=== PATIENT | female | born 2005 | race Two or more races ===

== ENCOUNTER 2025-02-02 22:13 | Inpatient (IN) | payer OTHER, SELFPAY ==
[2025-02-02] VITALS (7 sets, daily range): BP systolic 107–118; BP diastolic 65–80; PULSE 65–99; RESP 10–20; TEMP 3.3–37.9; O2SAT 97–100; BMI 19.8
[2025-02-02] MEDS: ETOMIDATE INJ 2 MG/ML VIAL 10 ML 10 MG IVP (22:19)
[2025-02-02] MEDS: ROCURONIUM INJ 10 MG/ML VIAL 10 ML 50 MG IVP (22:19)
--- NOTE | 2025-02-02 22:20 | XR_ITS ---
EXAMINATION: AP chest single view TECHNIQUE: AP portable supine chest single view INDICATION: Hypoxic respiratory failure post intubation FINDINGS: Normal heart size No pulmonary edema or pneumonia Endotracheal tube tip 3 cm above corie. Orogastric tube in the stomach IMPRESSION: Endotracheal tube 3 cm above corie
--- NOTE | 2025-02-02 22:25 | XR_ITS ---
Examination: CT brain head without contrast. 2-D sagittal coronal reconstructions Date and time of exam: February 02, 2025, 11:19 p.m. INDICATIONS: Altered mental status,, today with elevated blood alcohol level CTDI: vol (mGy): 46.3 DLP: (mGycm): 815 Technique: Multiple CT axial sections of the brain have been obtained, 5 mm slice thickness. Contrast has not been administered. 2-D sagittal, coronal reconstructions have been obtained Low dose protocols were performed. One or more of the following dose reduction techniques were used; automated exposure control, adjustment of the mA and/or KV according to patient size, use of iterative reconstruction technique. Findings: No significant ventricular enlargement. Intra-axial or extra-axial hemorrhage density is not seen. No mass effect or midline shift Basal cisterns are not remarkable. Fourth ventricle is midline. Cranial vault intact. Chronic pansinusitis Impression: Negative for acute hemorrhage, mass effect or midline shift
--- NOTE | 2025-02-02 22:26 | PD.EDAMS ---
Altered Mental Status RME/HPI General Chief Complaint: Altered Mental Status Stated Complaint: ALTERED Time Seen by Provider: 02/02/25 22:24 Arrival date/time: 02/02/25 22:13 RME / HPI RME / HPI narrative: DR. CARSON MAIN ED EVALUATION: Patient found in bedroom obtunded with alcohol bottle and presumed to have drank alcohol earlier in the day, was found unresponsive by paramedics with large amount of emesis. Patient transported to ER emergently and IV established in the field. Patient placed on high-flow non-rebreather with GCS of 3. PMH: Unable to assess PSH: Unable to assess Allergies: Unable to assess Social: Unable to assess Related Data Previous Rx's ?Medication ?Instructions ?Recorded amoxicillin 875 mg-potassium 1 tab PO BID aspiration pneumonia 02/04/25 clavulanate 125 mg tablet 3 days #6 tabs Allergies Allergy/AdvReac Type Severity Reaction Status Date / Time No Known Allergies Allergy Verified 02/03/25 03:53 Review of Systems Review of Systems Systems Reviewed: All systems reviewed, normal except as documented Past Medical History Social History SMOKING STATUS: Unknown if ever smoked ALCOHOL: Current ALCOHOL LAST INTAKE: Just Prior to Arrival ED Exam Narrative Physical exam: GEN. APPEARANCE: Patient under no distress, lying down comfortably, does not look ill/toxic. Patient has good eye contact. Patient is cooperative. Patient obtunded, unresponsive with digested particulate matter within her mouth. VITALS: All vitals were reviewed and the pulse ox is 99%, which is normal according to my interpretation HEENT: Normocephalic, atraumatic and nontender. Pupils are 6 mm, with slight diconjugate gaze noted. Oral mucosa is moist. NECK: Supple, nontender, no meningismus, no JVD. There is no thyromegaly and no lymphadenopathy. CHEST: Nontender on palpation no deformity and no crepitus. CARDIOVASCULAR: Mildly tachycardic, no murmur or gallop rub or extra beats. LUNGS: Clear to auscultation bilaterally with symmetrical chest rise. No laboring tachypnea or wheezing. No intercostal subcostal retraction. No rales and no rhonchi. ABDOMEN: Soft, flat, nontender to palpation, no guarding or rebound tenderness. There are no abnormal masses palpated. No pulsatile masses or bruits. Active and normal bowel sounds. EXTREMITIES: Normal inspection and palpation. No edema. No cyanosis. Patient is able to move all 4 extremities well SKIN: Warm and dry, no rashes noted. MUSCULOSKELETAL: No lumbar or midline bony tenderness. There is no CVA tenderness. No paraspinal muscle spasm or tenderness. NEURO: Unable to assess cranial nerves, extremities are flaccid, no response to deep sternal rub. GCS of 3. PSYCHIATRIC: Patient is in normal mood and affect, cooperative. LYMPHATICS: No major lymphadenopathy noted. Course Quality Measures none Orders Category Date Time Status 24 HR Medical Restraints Q2HR Care 02/02/25 23:08 Completed Bedside COVID-19 Antigen Test NOW Care 02/02/25 22:35 Completed COVID-19 Screening Questionnaire NOW Care 02/02/25 22:58 Completed Indwelling [Urinary Catheter] QS Care 02/02/25 22:20 Completed Intubation NOW Care 02/02/25 22:40 Completed NG / OG Tube to LIS NOW Care 02/02/25 22:[address] head/brain wo con Stat Exams 02/02/25 22:25 Completed XR chest 1V post procedure Stat Exams 02/02/25 22:20 Completed ABG [Arterial Blood Gas] Stat Lab 02/02/25 22:56 Completed Acetaminophen Stat Lab 02/02/25 22:20 Completed CBC Stat Lab 02/02/25 22:20 Completed CMP [Comprehensive Metabolic Panel] Stat Lab 02/02/25 22:20 Completed Drug Screen,Urine Stat Lab 02/02/25 22:30 Completed HCG Qualitative,Urine Stat Lab 02/02/25 22:30 Completed SANDRA [Alcohol, Blood Medical] Stat Lab 02/02/25 22:20 Completed Magnesium Stat Lab 02/02/25 22:20 Completed Phosphorous Stat Lab 02/02/25 22:20 Completed Salicylate Stat Lab 02/02/25 22:20 Completed Sputum Culture and Gram Stain Stat Lab 02/02/25 22:55 Completed UA, C/S IF [Urinalysis, C/S if Indicated] Stat Lab 02/02/25 22:30 Completed Etomidate Inj [Amidate Inj] Med 02/02/25 22:22 Discontinued 10 mg IVP X1 ONE Etomidate Inj [Amidate Inj] Med 02/02/25 22:15 Discontinued 20 mg .ROUTE .STK-MED ONE Propofol 1,000 mg Ivpb [Diprivan Ivpb] Med 02/02/25 22:28 Discontinued 1,000 mg in 100 ml IV .STK-MED Propofol 1,000 mg Ivpb [Diprivan Ivpb] Med 02/02/25 22:35 Discontinued 1,000 mg in 100 ml IV 5 mcg/kg/min Propofol Inj [Diprivan Inj] Med 02/02/25 22:36 Discontinued 50 mg IV X1 ONE Rocuronium Inj [Zemuron Inj] Med 02/02/25 22:16 Discontinued 100 mg .ROUTE .STK-MED ONE Rocuronium Inj [Zemuron Inj] Med 02/02/25 22:23 Discontinued 50 mg IVP X1 ONE Sodium Chloride 0.9% 1000 ml [Ns] 1,000 ml Med 02/02/25 23:58 Discontinued IV 200 mls/hr Sodium Chloride 0.9% 1000 ml [Ns] 1,000 ml Med 02/02/25 22:26 Discontinued IV 999 mls/hr Sodium Chloride Rt Jana 10% [NS Rt Jana 10%] Med 02/02/25 22:37 Discontinued 5 ml INH X1 PRN Vital Signs Vital signs: Vital Signs Temperature 94.1 F L 02/02/25 22:20 Pulse Rate 99 02/02/25 22:20 Respiratory Rate 14 02/02/25 22:20 Blood Pressure 114/78 02/02/25 22:20 Pulse Oximetry (%) 99 02/02/25 22:20 Oxygen Delivery Method Ambu-Bag 02/02/25 22:20 PROCEDURES: Intubation Time out performed: Yes sedative: Etomidate Mg Given: 10 paralytic: Rocuronium Mg Given: 50 Laryngoscope: fiber optic video scope Assist Device Used: fiber optic device ET Tube Size: 6 (.02) ET Tube Uncuffed: Yes Tube Secured Depth (cm): 22 Tube Secured Location: teeth Tube Placement Confirmation: visualized tube passing through cords, equal breath sounds bilaterally and confirmation by capnometry Patient Tolerated Procedure: well and no complications Intubation Complications: none Altered Mental Status MDM Narrative MDM Narrative:: Scribe Attestation: Monica Nicole am scribing for and in the presence of Dr. Spencer. Provider Notation: Although this document has been carefully reviewed, there may still be some phonetic and other typographical errors. These errors are purely grammatical due to imperfections in the software program and should not be construed in any way to compromise the substance of the patient's medical care during this visit. Patient found in bedroom obtunded with alcohol bottle and presumed to have drank alcohol earlier in the day, was found unresponsive by paramedics with large amount of emesis. Patient transported to ER emergently and IV established in the field. Please see PE findings. Laboratory markers, including CBC and serum chemistries, were remarkable for WBC of 19.5, no left shift or associated bandemia. Serum chemistries demonstarte slightly low Potassium of 3.2 and Carbon Diozide of 19.3. Glucose mildly elevated at 173. UA unremarkable. Ethanol level 0.545. Patient immediately triaged to monitored bed, patient with GCS of 3, and intubated shortly thereafter (please see procedure note). Patient hydrated with saline in addition to receiving IV ABX after cultures obtained. Patient was notably hypothermic and external warming measures applied. Patient maintained on sedation protocol. Hospitalist consulted and agrees to admit. Final diagnoses include acute ethanol intoxication and R/O aspiration. Patient data External records reviewed:: [facility] previous records (No prior ED records available for review) and EMS form Clinical information provided by:: EMS Social determinants that could affect healthcare access:: alcohol use Patient has the following chronic illnesses:: None reported How is presenting disease/condition affected by chronic disease/condition?: no chronic disease Evaluation data The following diagnostics were reviewed and interpreted by me:: lab results and radiology exam(s) Lab and/or radiology exams considered but not ordered:: None Interpretation Summary: RADIOLOGY Head/Brain CT: Findings: No significant ventricular enlargement. Intra-axial or extra-axial hemorrhage density is not seen. No mass effect or midline shift Basal cisterns are not remarkable. Fourth ventricle is midline. Cranial vault intact. Chronic pansinusitis Impression: Negative for acute hemorrhage, mass effect or midline shift Chest X-Ray: FINDINGS: Normal heart size No pulmonary edema or pneumonia Endotracheal tube tip 3 cm above corie. Orogastric tube in the stomach IMPRESSION: Endotracheal tube 3 cm above corie Medications / Prescriptions Medications or Prescriptions considered but not ordered:: None Medication administrations:: Medication Administration History Discontinued Medications Acetaminophen (Acetaminophen 325 Mg Tablet) 650 mg PO Q6H PRN PRN Reason: Fever >101.3 or pain Stop: 03/05/25 00:17 Acetaminophen (Acetaminophen 325 Mg Tablet) 650 mg PO Q6H PRN PRN Reason: PAIN SCALE 1-3 (mild Stop: 03/05/25 00:17 Acetaminophen (Acetaminophen 325 Mg Tablet) 650 mg PO Q6H PRN PRN Reason: Pain Scale 1-3 or fever 101.3 Stop: 03/05/25 00:17 Diazepam (Diazepam Inj 5 Mg/Ml Vial 2 Ml) 5 mg IVP X1 PRN PRN Reason: Breakthrough Agitation Etomidate (Etomidate Inj 2 Mg/Ml Vial 10 Ml) Confirm Administered Dose 20 mg .ROUTE .STK-MED ONE Stop: 02/02/25 22:16 Last Admin: 02/02/25 22:26 Dose: Not Given Documented By: MARK Non-Admin Reason: Override Medication Etomidate (Etomidate Inj 2 Mg/Ml Vial 10 Ml) 10 mg IVP X1 ONE Stop: 02/02/25 22:23 Last Admin: 02/02/25 22:19 Dose: 10 mg Documented By: MARK Folic Acid (Folic Acid Inj 1 Mg/0.2 Ml) 1 mg IVP QDAY SHANE Stop: 02/06/25 00:24 Last Admin: 02/04/25 09:15 Dose: 1 mg Documented By: [email or web address] Admin: 02/03/25 09:18 Dose: 1 mg Documented By: Admin: 02/03/25 00:45 Dose: 1 mg Documented By: VIANEY Heparin Sodium (Porcine) (Heparin Sod Inj 5000 Unit/Ml Vial) 5,000 unit SC Q8HR SHANE Stop: 02/17/25 00:29 Last Admin: 02/04/25 05:14 Dose: 5,000 unit Documented By: LORELEI Co-signed By: DALTON Admin: 02/03/25 21:07 Dose: 5,000 unit Documented By: LORELEI Co-signed By: [email or web address] Admin: 02/03/25 15:03 Dose: 5,000 unit Documented By: LOUIS Co-signed By: LEWIS Admin: 02/03/25 05:24 Dose: 5,000 unit Documented By: ROBERT Co-signed By: RENETTA Admin: 02/03/25 00:51 Dose: 5,000 unit Documented By: VIANEY Co-signed By: MARY Sodium Chloride (Ns) 1,000 mls @ 999 mls/hr IV .Q1H1M ONE Stop: 02/02/25 23:26 Last Infusion: 02/02/25 23:42 Dose: Infused Documented By: Admin: 02/02/25 22:34 Dose: 999 mls/hr Documented By: AMRK Propofol (Diprivan Ivpb) Confirm Administered Dose 1,000 mg in 100 mls @ ud IV .STK-MED ONE Stop: 02/02/25 22:29 Last Admin: 02/02/25 22:36 Dose: Not Given Documented By: VIANEY Non-Admin Reason: Duplicate Medication on eMAR Propofol (Diprivan Ivpb) 1,000 mg in 100 mls @ 1.479 mls/hr IV .Q24H PRN; Protocol PRN Reason: PER PROTOCOL Stop: 03/04/25 22:34 Last Titration: 02/03/25 06:15 Dose: 5 mcg/kg/min, 1.479 mls/hr Documented By: Titration: 02/03/25 06:00 Dose: 10 mcg/kg/min, 2.958 mls/hr Documented By: Titration: 02/03/25 05:30 Dose: 15 mcg/kg/min, 4.437 mls/hr Documented By: Titration: 02/03/25 05:15 Dose: 20 mcg/kg/min, 5.916 mls/hr Documented By: Titration: 02/03/25 05:00 Dose: 25 mcg/kg/min, 7.395 mls/hr Documented By: Titration: 02/03/25 04:30 Dose: 30 mcg/kg/min, 8.874 mls/hr Documented By: Titration: 02/03/25 04:00 Dose: 35 mcg/kg/min, 10.353 mls/hr Documented By: Titration: 02/03/25 03:00 Dose: 35 mcg/kg/min, 10.353 mls/hr Documented By: Titration: 02/03/25 02:30 Dose: 30 mcg/kg/min, 8.874 mls/hr Documented By: Titration: 02/03/25 02:20 Dose: 25 mcg/kg/min, 7.395 mls/hr Documented By: Titration: 02/03/25 02:10 Dose: 20 mcg/kg/min, 5.916 mls/hr Documented By: Titration: 02/03/25 02:00 Dose: 15 mcg/kg/min, 4.437 mls/hr Documented By: Titration: 02/03/25 01:45 Dose: 10 mcg/kg/min, 2.958 mls/hr Documented By: Admin: 02/02/25 22:28 Dose: 5 mcg/kg/min, 1.479 mls/hr Documented By: VIANEY Co-signed By: MARY Sodium Chloride (Ns) 1,000 mls @ 200 mls/hr IV .Q5H SHANE Stop: 03/04/25 23:57 Last Admin: 02/03/25 00:04 Dose: 200 mls/hr Documented By: VIANEY Magnesium Sulfate (Magnesium Sulfate Ivpb) 2 gm in 50 mls @ 25 mls/hr IV X1 ONE Stop: 02/03/25 02:22 Last Infusion: 02/03/25 03:48 Dose: Infused Documented By: Admin: 02/03/25 00:42 Dose: 25 mls/hr Documented By: VIANEY Lactated Ringer's (Lactated Ringers) 1,000 mls @ 999 mls/hr IV .Q1H1M ONE Stop: 02/03/25 01:27 Last Infusion: 02/03/25 03:48 Dose: Infused Documented By: Admin: 02/03/25 00:38 Dose: 999 mls/hr Documented By: VIANEY Potassium Chloride (Kcl Ivpb) 10 meq in 100 mls @ 100 mls/hr IV Q1H SHANE Stop: 02/03/25 04:27 Last Infusion: 02/03/25 06:37 Dose: Infused Documented By: Admin: 02/03/25 04:18 Dose: 100 mls/hr Documented By: Infusion: 02/03/25 04:03 Dose: Infused Documented By: Admin: 02/03/25 03:03 Dose: 100 mls/hr Documented By: Infusion: 02/03/25 03:03 Dose: Infused Documented By: Admin: 02/03/25 02:07 Dose: 100 mls/hr Documented By: Infusion: 02/03/25 01:42 Dose: Infused Documented By: Admin: 02/03/25 00:42 Dose: 100 mls/hr Documented By: VIANEY Calcium Gluconate/Sodium Chloride (Calcium Gluc/Ns 1000mg Ivpb) 1,000 mg in 50 mls @ 50 mls/hr IV X1 ONE Stop: 02/03/25 01:29 Last Infusion: 02/03/25 03:48 Dose: Infused Documented By: Admin: 02/03/25 02:08 Dose: 50 mls/hr Documented By: ROBERT Lactated Ringer's (Lactated Ringers) 1,000 mls @ 200 mls/hr IV .Q5H SHANE Stop: 03/05/25 00:30 Last Admin: 02/03/25 00:39 Dose: 200 mls/hr Documented By: VIANEY Lactated Ringer's (Lactated Ringers) 1,000 mls @ 999 mls/hr IV .Q1H1M ONE Stop: 02/03/25 01:34 Last Infusion: 02/03/25 03:48 Dose: Infused Documented By: Admin: 02/03/25 00:54 Dose: 999 mls/hr Documented By: VIANEY Propofol (Diprivan Ivpb) 1,000 mg in 100 mls @ 1.479 mls/hr IV .Q24H PRN; Protocol PRN Reason: PER PROTOCOL Stop: 03/04/25 22:34 Potassium Chloride (Kcl Ivpb) 10 meq in 100 mls @ 100 mls/hr IV Q1H SHANE Stop: 02/03/25 06:29 Last Admin: 02/03/25 06:15 Dose: Not Given Documented By: ROBERT Non-Admin Reason: Discontinued Infusion: 02/03/25 06:15 Dose: Infused Documented By: Admin: 02/03/25 05:00 Dose: 100 mls/hr Documented By: ROBERT Lactated Ringer's (Lactated Ringers) 1,000 mls @ 999 mls/hr IV .Q1H1M ONE Stop: 02/03/25 02:35 Last Infusion: 02/03/25 03:48 Dose: Infused Documented By: Admin: 02/03/25 02:08 Dose: 999 mls/hr Documented By: ROBERT Ceftriaxone Sodium/Dextrose (Rocephin/D5w 1gm Iv Premix) 1 gm in 50 mls @ 100 mls/hr IV QDAY [facility] Stop: 02/10/25 02:15 Last Infusion: 02/03/25 03:48 Dose: Infused Documented By: Admin: 02/03/25 02:48 Dose: 100 mls/hr Documented By: ROBERT Dexmedetomidine/Sodium Chloride (Precedex Ivpb) 400 mcg in 100 mls @ 2.465 mls/hr IV .Q24H PRN; Protocol PRN Reason: Per PROTOCOL Stop: 03/05/25 02:15 Ceftriaxone Sodium/Dextrose (Rocephin/D5w 1gm Iv Premix) 1 gm in 50 mls @ 100 mls/hr IV QDAY ONE Stop: 02/03/25 03:24 Last Admin: 02/03/25 03:03 Dose: Not Given Documented By: ROBERT Non-Admin Reason: Duplicate Medication on eMAR Ampicillin Sodium/Sulbactam (Sodium 1.5 gm/ Sodium Chloride) 50 mls @ 100 mls/hr IV Q6HR [facility] Stop: 02/10/25 05:59 Last Admin: 02/04/25 11:24 Dose: 100 mls/hr Documented By: Infusion: 02/04/25 05:44 Dose: Infused Documented By: Admin: 02/04/25 05:14 Dose: 100 mls/hr Documented By: Infusion: 02/03/25 23:52 Dose: Infused Documented By: Admin: 02/03/25 23:22 Dose: 100 mls/hr Documented By: Infusion: 02/03/25 18:03 Dose: Infused Documented By: Admin: 02/03/25 17:33 Dose: 100 mls/hr Documented By: Infusion: 02/03/25 13:25 Dose: Infused Documented By: Admin: 02/03/25 12:55 Dose: 100 mls/hr Documented By: Infusion: 02/03/25 05:53 Dose: Infused Documented By: Admin: 02/03/25 05:23 Dose: 100 mls/hr Documented By: ROBERT Dexmedetomidine/Sodium Chloride (Precedex Ivpb) 400 mcg in 100 mls @ 2.465 mls/hr IV .Q24H PRN; Protocol PRN Reason: Per PROTOCOL Stop: 03/05/25 02:15 Last Titration: 02/03/25 10:18 Dose: 0 mcg/kg/hr, 0 mls/hr Documented By: Titration: 02/03/25 10:00 Dose: 0.8 mcg/kg/hr, 9.86 mls/hr Documented By: Titration: 02/03/25 09:00 Dose: 0.8 mcg/kg/hr, 9.86 mls/hr Documented By: Titration: 02/03/25 08:00 Dose: 0.8 mcg/kg/hr, 9.86 mls/hr Documented By: Titration: 02/03/25 07:00 Dose: 0.8 mcg/kg/hr, 9.86 mls/hr Documented By: Titration: 02/03/25 06:00 Dose: 0.8 mcg/kg/hr, 9.86 mls/hr Documented By: Titration: 02/03/25 05:00 Dose: 0.8 mcg/kg/hr, 9.86 mls/hr Documented By: Titration: 02/03/25 04:00 Dose: 0.8 mcg/kg/hr, 9.86 mls/hr Documented By: Titration: 02/03/25 03:12 Dose: 0.8 mcg/kg/hr, 9.86 mls/hr Documented By: Admin: 02/03/25 03:00 Dose: 0.2 mcg/kg/hr, 2.465 mls/hr Documented By: ROBERT Propofol (Diprivan Ivpb) 1,000 mg in 100 mls @ 1.479 mls/hr IV .Q24H PRN; Protocol PRN Reason: PER PROTOCOL Stop: 03/05/25 02:56 Lactated Ringer's (Lactated Ringers) 1,000 mls @ 999 mls/hr IV .Q1H1M ONE Stop: 02/03/25 06:47 Last Admin: 02/03/25 06:16 Dose: 999 mls/hr Documented By: ROBERT Dexmedetomidine/Sodium Chloride (Precedex Ivpb) 400 mcg in 100 mls @ 2.465 mls/hr IV .Q24H PRN; Protocol PRN Reason: Per PROTOCOL Stop: 03/05/25 02:15 Propofol (Diprivan Ivpb) 1,000 mg in 100 mls @ 1.479 mls/hr IV .Q24H PRN; Protocol PRN Reason: PER PROTOCOL Stop: 03/05/25 02:56 Lactated Ringer's (Lactated Ringers) 1,000 mls @ 75 mls/hr IV .[id number] ONE Stop: 02/04/25 04:03 Last Admin: 02/03/25 15:03 Dose: 75 mls/hr Documented By: LOUIS Influenza Virus Vaccine Quadrival (Influenza Virus 0.5 Ml Syringe ) 0.5 ml IMi .ONCE ONE Stop: 02/03/25 03:45 Lorazepam (Lorazepam 0.5 Mg Tablet) 0.5 mg PO Q4HR PRN PRN Reason: CIWA Score 2-6 Stop: 02/08/25 16:13 Last Admin: 02/03/25 18:25 Dose: 0.5 mg Documented By: BRUCE Lorazepam (Lorazepam 0.5 Mg Tablet) 1 mg PO Q4HR PRN PRN Reason: CIWA SCORE 7-11 Stop: 02/08/25 16:13 Lorazepam (Lorazepam 0.5 Mg Tablet) 2 mg PO Q4HR PRN PRN Reason: CIWA SCORE 12-15 Stop: 02/08/25 16:13 Midazolam HCl (Midazolam Inj 1 Mg/Ml Vial 2 Ml) 2 mg IM X1 ONE Stop: 02/03/25 03:09 Last Admin: 02/03/25 04:30 Dose: Not Given Documented By: ROBERT Non-Admin Reason: Discontinued Midazolam HCl (Midazolam Inj 1 Mg/Ml Vial 2 Ml) 2 mg IVP X1 ONE Stop: 02/03/25 03:11 Last Admin: 02/03/25 05:19 Dose: Not Given Documented By: ROBERT Non-Admin Reason: Change of Condition Ondansetron HCl (Ondansetron Inj 2 Mg/Ml Inj 2 Ml) 4 mg IVP Q6H PRN; Protocol PRN Reason: NAUSEA OR VOMITING Stop: 03/05/25 00:17 Pantoprazole Sodium (Pantoprazole Inj 40 Mg Vial) 40 mg IVP QDAY [facility] Stop: 03/05/25 08:59 Last Admin: 02/03/25 09:18 Dose: 40 mg Documented By: LOUIS Propofol (Propofol Inj 10 Mg/Ml Vial 20 Ml) 50 mg IV X1 ONE Stop: 02/02/25 22:37 Last Admin: 02/02/25 22:41 Dose: Not Given Documented By: DT Non-Admin Reason: Cancelled by Provider Rocuronium Crooks (Rocuronium Inj 10 Mg/Ml Vial 10 Ml) Confirm Administered Dose 100 mg .ROUTE .STK-MED ONE Stop: 02/02/25 22:17 Last Admin: 02/02/25 22:26 Dose: Not Given Documented By: MARK Non-Admin Reason: Override Medication Rocuronium Crooks (Rocuronium Inj 10 Mg/Ml Vial 10 Ml) 50 mg IVP X1 ONE Stop: 02/02/25 22:24 Last Admin: 02/02/25 22:19 Dose: 50 mg Documented By: MARK Co-signed By: MARY Sodium Chloride (Sodium Chloride Rt 10% 15 Ml Nebu) 5 ml INH X1 PRN PRN Reason: If induction required Stop: 03/04/25 22:36 Thiamine HCl (Thiamine Inj 100 Mg/Ml Vial 2 Ml) 100 mg IVP QDAY [facility] Stop: 02/06/25 00:24 Last Admin: 02/04/25 08:12 Dose: 100 mg Documented By: [email or web address] Admin: 02/03/25 09:17 Dose: 100 mg Documented By: Admin: 02/03/25 00:52 Dose: 100 mg Documented By: VIANEY Thiamine HCl (Thiamine Inj 100 Mg/Ml Vial 2 Ml) 100 mg IVP X1 ONE Stop: 02/03/25 00:24 Last Admin: 02/03/25 00:45 Dose: 100 mg Documented By: DT See above if any Consultations Consultation(s) initiated? (list below): Yes Consultation #1 (Physician, Specialty, Details): Discussed with Dr. Coello for admission. Reviewed the patient?s HPI, PMHx, lab and/or radiology results. Discussed treatment plan. Will consult an admission to the hospitalist. Time: 00:15 Diagnosis Differential diagnosis altered mental status: alcoholic intoxication, altered mental status, delirium, hypoglycemia, hyponatremia, subarachnoid hemorrhage and sepsis Most likely diagnosis given after review of the tests above:: acute ethanol intoxication and R/O aspiration Admission Indicated Admission indicated?: indicated Explain why admission is indicated or not indicated:: acute ethanol intoxication and R/O aspiration Admission Request Was there a request for admission?: Yes Admission Attestation Admission request attestation: Discussed case with [] from Hospitalist service regarding admission. Discussed patients ED course, exam findings, labs, and radiology results. The Hospitalist [agrees,declines] to accept the patient for admission. Disposition Plan Disposition Plan: Admit Critical Care Time Critical Care Time Critical Care Time: Yes Total Critical Care Time (min.): 35 Attestation: Please note above documentation performed by the undersigned. Discharge Plan Plan Patient Disposition: Admit Acute Care w/in Hospital Discharge Disposition comment: icu Patient condition on transfer: Stable Problem List Clinical Impression: Alcoholic intoxication
[2025-02-02] MEDS: PROPOFOL 1,000 MG IVPB 1,000 MG/100 ML VIAL 1.479 MG IV (22:28)
[2025-02-02] MEDS: SODIUM CHLORIDE 0.9% 1000 ML 1,000 ML 999 ML IV (22:34)
[2025-02-02 22:41] LABS: Collection Type, Urine Catheter; Squamous Epithelial Cell,Urine 0 /hpf (0-5)
[2025-02-02 22:44] LABS: Basophils # (Auto) 0.2 Thou/mm3 (0.0-0.2); Basophils % (Auto) 1 % (0-2.5); Eosinophils # (Auto) 0.3 Thou/mm3 (0.0-0.5); Eosinophils % (Auto) 2 % (0-10); Hematocrit 45.0 % (36.0-46.0); Hemoglobin 15.2 g/dL (12.0-16.0); Immature Granulocytes Auto 0.98 Thou/mm3 (0.00-0.00); Lymphocytes # (Auto) 7.6 Thou/mm3 (1.0-4.8); Lymphocytes % (Auto) 39 % (10-50); Mean Corpuscular HGB Conc 33.8 g/dl (31.0-37.0); Mean Corpuscular Hemoglobin 29.6 pg (25.0-35.0); Mean Corpuscular Volume 88 fL (80-100); Monocytes # (Auto) 1.5 Thou/mm3 (0.0-0.8); Monocytes % (Auto) 8 % (0-12); Neutrophils # (Auto) 8.8 Thou/mm3 (1.8-7.7); Neutrophils % (Auto) 46 % (37-80); Nucleated Red Blood Cell # 0.00 Thou/mm3 (0.00-0.00); Nucleated Red Blood Cell % 0 /100 WBC (0); Platelet Count 377 Thou/mm3 (140-440); RDW Standard Deviation 41.1 fL (36.4-46.3); Red Blood Count 5.14 Miln/mm3 (4.00-5.20); White Blood Count 19.5 Thou/mm3 (4.5-11.0)
[2025-02-02 22:47] LABS: Bilirubin,Urine Negative (Negative); Blood,Urine Negative (Negative); Clarity,Urine Clear (Clear/Hazy); Color,Urine Lt-Yellow (Lt Yel-Yel); Culture Indicated,Urine Not Indicated; Glucose, Urine Negative (Negative); Hyaline Casts,Urine < 1 /hpf (0-1); Ketones,Urine Negative (Negative); Leukocyte Esterase,Urine Negative (Negative); Nitrite,Urine Negative (Negative); PH,Urine 6.0 (5.0-7.0); Protein,Urine 1+ (Neg - Trace); RBC,Urine 1 /hpf (0-3); Specific Gravity,Urine 1.024 (1.001-1.035); Urobilinogen,Urine Negative mg/dL (0.0-1.0); WBC,Urine 1 /hpf (0-5)
[2025-02-02 22:48] LABS: HCG Qualitative,Urine Negative
[2025-02-02 22:53] LABS: Amphetamine/Methamp Scrn,U Negative (Negative); Barbiturate Screen,Urine Negative (Negative); Benzodiazepines Screen,Urine Negative (Negative); Benzoylecgonine Screen, Ur Negative (Negative); Fentanyl Screen,Urine Negative (Negative); Opiate Screen,Urine Negative (Negative); THC Screen,Urine Negative (Negative)
[2025-02-02 23:09] LABS: Base Excess -8 (-3-3); HCO3 20 mEq/L (20-26); Inspired Oxygen, FIO2 100 %; O2 Saturation 100 % (91-98); PCO2 44 mmHg (32.0-48.0); PO2 453 mmHg (83-108); pH, Arterial 7.25 (7.35-7.45)
[2025-02-02 23:10] LABS: Puncture Site Right Radial
[2025-02-02 23:11] LABS: Allen Test Performed/OK
[2025-02-02 23:15] LABS: Acetaminophen < 2.0 mcg/mL (10.0-20.0); Alanine Aminotransferase 34 U/L (10-49); Albumin, Serum 4.9 gm/dL (3.5-5.0); Albumin/Globulin Ratio 1.8 (1.2-2.2); Alkaline Phosphatase 121 U/L (46-116); Anion Gap 14 (7-16); Aspartate Amino Transferase 34 U/L (0-34); BUN/Creatinine Ratio 13 Ratio (12-20); Bilirubin,Total 0.2 mg/dL (0.3-1.2); Blood Urea Nitrogen 8 mg/dL (9-23); Calcium 8.5 mg/dL (8.3-10.6); Calcium (Corrected) 8.5 mg/dL (8.5-10.1); Carbon Dioxide 19.3 mMol/L (20.0-31.0); Chloride 106 mMol/L (98-107); Creatinine (Component) 0.6 mg/dL (0.6-1.3); Estimated Creatinine Clearance 116.4 mL/min (>60); Globulin 2.8 gm/dL (2.3-3.5); Glucose 173 mg/dL (74-106); Osmolality,Calculated 279 (275-295); Potassium 3.2 mMol/L (3.4-5.1); Salicylate < 3.0 mg/dL; Sodium 139 mMol/L (136-145); Total Protein 7.7 gm/dL (5.7-8.2); eGFR > 60 See Note
[2025-02-02 23:17] LABS: Alcohol, Blood Medical 545.6 mg/dL (0-10.0)
--- NOTE | 2025-02-02 23:40 | PC.NURSE ---
PATIENT FATHER AND MOTHER AT BEDSIDE. FAMILY UPDATED ON PATIENT CARE.
[2025-02-03] VITALS (21 sets, daily range): BP systolic 93–124; BP diastolic 48–82; PULSE 66–94; RESP 20–27; TEMP 34.8–36.3; O2SAT 97–100; BMI 19.8
[2025-02-03] MEDS: SODIUM CHLORIDE 0.9% 1000 ML 1,000 ML 200 ML IV (00:04)
--- NOTE | 2025-02-03 00:23 | EKG_ITS ---
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
--- NOTE | 2025-02-03 00:34 | ESHP_ITS ---
<Statement entered by Raj Franklin MD - 02/03/25 06:08> I have discussed and was present for the essential components of the history, physical examination, diagnosis, and treatment plan with the resident. I agree with the patient's care as documented by the resident and amended herein by me. I personally saw and examined the patient with the resident on 02/03/2025 and agree with the residents note, assessment and plan. I personally spent 35 minutes of critical care time in the evaluation and management of this critically ill patient. Raj Franklin MD FACP. Documentation for date of: 02/03/25 HPI History of Present Illness Chief complaint: AMS History of present illness: This patient is a 20-year-old female with no significant past medical history brought to ED by EMS in obtunded state on 02/02/2025. Patient was found obtunded with alcohol bottle and presumed to have drank alcohol earlier in the day and was found unresponsive by paramedics with large amount of emesis. She was immediately rushed to ER. Initially, patient was on high flow nonrebreather with GCS of 3. She was intubated and mechanically ventilated in the ED for airway protection due to GCS of 3 with inability to protect airways. Patient's mother was contacted was a point of contact for patient while using [employer] ID number [id number]. She stated that patient was unable to breathe and was found altered at 10 PM. Her last well-known time was afternoon when she was interactive alert and oriented x 3. She also stated that patient had 2 episodes of emesis without any blood. She never had history of drinking alcohol and this was her first time drinking alcohol and mother was aware about it. She was alone in her room while she was drinking alcohol per patient's mom. Patient was not interacting with her mom while en route to the EMS and she did not noted any other complaints. Patient's mother was informed that patient is currently getting supportive care with IV fluids and will be intubated overnight and neurological status will be assessed in the morning. Patient is full code per patient's mom. PMH: Not significant PSH: not significant SH: She drank alcohol for the first time per patients mother, Per mother never smoked tobacco, No Hx of illicit drug use. Works at [employer]. Allergies: NKDA Home medications:None ED course: In the ED, patient's vital showed blood pressure 114/78, heart rate 99, respiratory rate 14, temperature 94.1. They were maintaining saturation by Ambu bag while she was brought into the ED. CBC showed WBC 19.5, hemoglobin stable at 15.2, platelet count 337. ABG showed pH 7.25, pCO2 44, pO2 453. FiO2 100%. Chemistry panel showed sodium 139, potassium 3.2, chloride 106, bicarb 19.3, anion gap 14. Kidney function stable with creatinine 0.6. Blood glucose 173. Liver enzymes unremarkable. T. bili normal. ALP 121. Albumin 4.9. Urinalysis revealed protein 1+ only. Beta-hCG negative. U tox was negative. EtOH 545.6 Tylenol level less than 2. Salicylates level less than 3. Chest x-ray showed no pneumonia or pulm edema. ET tube 3 cm above corie. Sputum ED cultures taken. Head CT showed no acute pathology. In the ED, patient received 1 L bolus of NS x 1, rocuronium 50 mg IV x 1 and etomidate 10 mg IV x 1. Propofol started for sedation. Patient will be admitted to ICU for the management of acute encephalopathy s/p intubation due to alcohol intoxication. Review of Systems Review of Systems ROS Unobtainable: unobtainable due to mental status and due to endotracheal tube Past Medical History Social History SMOKING STATUS: Unknown if ever smoked Exam Vital Signs Temp Pulse Resp BP Pulse Ox O2 Del Method FiO2 95.2 F L 71 20 100/57 L 99 Mechanical Ventilation 100 02/03/25 00:25 02/03/25 00:06 02/03/25 00:06 02/03/25 00:06 02/03/25 00:06 02/03/25 00:06 02/02/25 22:51 Narrative Exam GENERAL APPEARANCE: Patient is intubated and mechanically ventilated on sedation with Prop & precedex HEENT: NC, AT. Dry mucous membrane. Pupils equal bilateral and reactive to light. EOMI, clear conjunctiva, oropharynx clear. NECK: Supple without lymphadenopathy. No stiffness or restricted ROM. HEART: Sinus tachycardia with regular rhythm, normal S1/S2, no m/r/g LUNGS: CTAB, moving air well. No crackles or wheezes are heard. ABDOMEN: Soft, nontender, nondistended with good bowel sounds heard. BACK: No CVAT, no obvious deformity. EXTREMITIES: Without cyanosis, clubbing or edema. NEUROLOGICAL: Grossly nonfocal. GCS 3 T. Postintubation. She is not withdrawing from pain. CN not formally tested but appear grossly intact. Skin: Warm and dry without any rash. On external warming. Psych: Unable to assess Results: Labs 02/02/25 22:20 02/02/25 22:20 Labs: Short CBC 02/02/25 Range/Units 22:20 WBC 19.5 H (4.5-11.0) Thou/mm3 Hgb 15.2 (12.0-16.0) g/dL Hct 45.0 (36.0-46.0) % Plt Count 377 (140-440) Thou/mm3 BMP 02/02/25 22:20 Sodium 139 Potassium 3.2 L Chloride 106 Carbon Dioxide 19.3 L BUN 8 L Creatinine 0.6 Glucose 173 H Calcium 8.5 Liver Function 02/02/25 Range/Units 22:20 Total Bilirubin 0.2 L (0.3-1.2) mg/dL AST 34 (0-34) U/L ALT 34 (10-49) U/L Alkaline Phosphatase 121 H (46-116) U/L Albumin 4.9 (3.5-5.0) gm/dL Urine 02/02/25 Range/Units 22:30 Urine Color Lt-Yellow (Lt Yel-Yel) Urine Clarity Clear (Clear/Hazy) Urine pH 6.0 (5.0-7.0) Ur Specific [place] 1.024 (1.001-1.035) Urine Protein 1+ A (Neg - Trace) Urine Glucose (UA) Negative (Negative) ABG Interpretation ABG results: 02/02/25 22:56 ABG pH 7.25 L ABG pCO2 44 ABG pO2 453 H ABG HCO3 20 ABG O2 Saturation 100 H ABG Base Excess -8 L Quality Measures Quality Measures VTE prophylaxis (Heparin SC ) Medications Home Medications and Allergies Home Medications ?Medication ?Instructions ?Recorded ?Confirmed ?Type No Known Home Medications 02/03/2501/16 History Allergies Allergy/AdvReac Type Severity Reaction Status Date / Time No Known Allergies Allergy Verified 02/03/25 03:53 Visit Medications Acetaminophen (Acetaminophen 325 Mg Tablet) 650 mg PO Q6H PRN PRN Reason: Fever >101.3 or pain Stop: 03/05/25 00:17 Acetaminophen (Acetaminophen 325 Mg Tablet) 650 mg PO Q6H PRN PRN Reason: PAIN SCALE 1-3 (mild Stop: 03/05/25 00:17 Folic Acid (Folic Acid Inj 1 Mg/0.2 Ml) 1 mg IVP QDAY SHANE Stop: 02/06/25 00:24 Heparin Sodium (Porcine) (Heparin Sod Inj 5000 Unit/Ml Vial) 5,000 unit SC Q8HR SHANE Stop: 02/17/25 00:29 Propofol (Diprivan Ivpb) 1,000 mg in 100 mls @ 1.479 mls/hr IV .Q24H PRN; Protocol PRN Reason: PER PROTOCOL Stop: 03/04/25 22:34 Last Admin: 02/02/25 22:28 Dose: 5 mcg/kg/min, 1.479 mls/hr Magnesium Sulfate (Magnesium Sulfate Ivpb) 2 gm in 50 mls @ 25 mls/hr IV X1 ONE Stop: 02/03/25 02:22 Lactated Ringer's (Lactated Ringers) 1,000 mls @ 999 mls/hr IV .Q1H1M ONE Stop: 02/03/25 01:27 Potassium Chloride (Kcl Ivpb) 10 meq in 100 mls @ 100 mls/hr IV Q1H SHANE Stop: 02/03/25 04:27 Calcium Gluconate/Sodium Chloride (Calcium Gluc/Ns 1000mg Ivpb) 1,000 mg in 50 mls @ 50 mls/hr IV X1 ONE Stop: 02/03/25 01:29 Lactated Ringer's (Lactated Ringers) 1,000 mls @ 200 mls/hr IV .Q5H SHANE Stop: 03/05/25 00:30 Ondansetron HCl (Ondansetron Inj 2 Mg/Ml Inj 2 Ml) 4 mg IVP Q6H PRN; Protocol PRN Reason: NAUSEA OR VOMITING Stop: 03/05/25 00:17 Pantoprazole Sodium (Pantoprazole Inj 40 Mg Vial) 40 mg IVP QDAY [facility] Stop: 03/05/25 08:59 Sodium Chloride (Sodium Chloride Rt 10% 15 Ml Nebu) 5 ml INH X1 PRN PRN Reason: If induction required Stop: 03/04/25 22:36 Thiamine HCl (Thiamine Inj 100 Mg/Ml Vial 2 Ml) 100 mg IVP QDAY SHANE Stop: 02/06/25 00:24 Discontinued Medications Etomidate (Etomidate Inj 2 Mg/Ml Vial 10 Ml) 10 mg IVP X1 ONE Stop: 02/02/25 22:23 Last Admin: 02/02/25 22:19 Dose: 10 mg Sodium Chloride (Ns) 1,000 mls @ 999 mls/hr IV .Q1H1M ONE Stop: 02/02/25 23:26 Last Infusion: 02/02/25 23:42 Dose: Infused Sodium Chloride (Ns) 1,000 mls @ 200 mls/hr IV .Q5H SHANE Stop: 03/04/25 23:57 Last Admin: 02/03/25 00:04 Dose: 200 mls/hr Propofol (Propofol Inj 10 Mg/Ml Vial 20 Ml) 50 mg IV X1 ONE Stop: 02/02/25 22:37 Last Admin: 02/02/25 22:41 Dose: Not Given Rocuronium [place] (Rocuronium Inj 10 Mg/Ml Vial 10 Ml) 50 mg IVP X1 ONE Stop: 02/02/25 22:24 Last Admin: 02/02/25 22:19 Dose: 50 mg Thiamine HCl (Thiamine Inj 100 Mg/Ml Vial 2 Ml) 100 mg IVP X1 ONE Stop: 02/03/25 00:24 Assessment & Plan Plan This patient is a 20-year-old female with no significant past medical history brought to ED by EMS with altered mental status. She was found obtunded at home with a bottle of alcohol. Her GCS was 3. EtOH level 545.6. She is admitted to ICU for acute encephalopathy s/p intubation due to alcohol intoxication. Neuro #Acute encephalopathy DDx: Alcohol intoxication Patient presented with altered mental status/was found obtunded at home with bottle of alcohol. Baseline GCS 15. Per patient's mother this is the first time patient drink alcohol. In the ED, patient's blood pressure was 114/78, heart rate 99, RR 14, temperature 94.1. They were maintaining saturation by Ambu bag. Patient was intubated and mechanically ventilated for airway protection due to GCS of 3. EKG showed sinus rhythm with short OK interval. QTc 438. No acute ST-T changes seen. Diagnostic test ?EtOH level 545.6 ?Head CT showed no acute pathology. Treatment plan ?Continue sedation with propofol with RASS of -3 will try to wean off and switch to precedex with RAAS -3 as patient is biting tube and agitated ? Wean off sedation in the morning to assess patient's neurological status ? Continue Precedex if patient is severely agitated as needed based on neuro assesment ? Continue IV thiamine and IV folic acid ? Continue mechanical ventilation with lung protective measures Treatment review ? Follow-up with labs #Alcohol intoxication #Binge Drinking ? Patient presented with altered mental status. She was found obtunded seen by uncle at home. ?Patient's mother reported that she she drank alcohol first time. ? GCS 3 on admission. Diagnostic test ? EtOH level 545.6 Treatment plan ?Continue sedation with propofol with RASS of -3 will try to wean off and switch to precedex with RAAS -3 as patient is biting tube and agitated ?IV thiamine and folic acid daily ?Thiamine level ordered ?Referred to social media assistant #Hypothermia ? Patient was down for couple of minutes and was hypothermic in the ED. Diagnostic test ? Temperature 94.1 on admission. Treatment plan ? External warming measures CVS #Hypotension DDx: Hypovolemic due to emesis leading to dehydration ?Patient had large volume emesis while coming to the hospital and was down for couple of minutes. ? Patient presented with blood pressure of 114/78. Currently softer blood pressure. Treatment plan ? 4 L of bolus of fluids given x 1 [1 L NS and 3 L of LR] Treatment review ?Monitor urine output ?Strict PARVEEN's Respiratory #Intubated and mechanically ventilated for airway protection ? In the setting of acute encephalopathy due to alcohol intoxication ? Patient was intubated and mechanically ventilated for airway protection due to GCS of 3 on admission. ? Patient was given RSI with Etomidate 10 mg IV x 1 and Rocuronium 50 mg x 1 Diagnostic tests Chest x-ray showed no pneumonia or pulm edema. ET tube 3 cm above corie ABGs showed pH 7.25, pCO2 44, pO2 453. FiO2 100%. Treatment plan ? Continue with mechanical ventilation with lung protective measures( TV 300, RR 22 Fio2 100 PEEP 5) ?Repeating ABGs in 1 hour ? Continue sedation with propofol with RASS of -3 will try to wean off and switch to precedex with RAAS -3 as patient is biting tube and agitated ?Consider weaning sedation tomorrow to assess patient's neurological status and perform spontaneous breathing trial Treatment review ? Follow-up with ABGs and chest x-ray #Possible aspiration pneumonitis/pneumonia ? Per ED physician, patient had large amount of vomitus in her mouth while they were intubating her. ? Chest x-ray showed mild haziness on right side. Examination showed clear breath sounds. Treatment plan ?Continue IV 1 g Rocephin x1 due to white mucus secretions since in the Et tube( 02/03-) ?Starting Unasyn 1.5 g every 6 hourly to cover anaerobic starting in morning ? Continue mechanical ventilation ? Zofran as needed for emesis Treatment review ? Follow-up with sputum cultures GI #Emesis ?In the setting of alcohol intoxication ? Patient presented with large episode of emesis before coming to the ED. no blood was seen in the vomit. Treatment Plan: ?IV zofran 4 mg q6hr as needed ?Protonix 40 mg IV for GI prophylaxis Heme #Leukocytosis likely reactive ?WBC 19 Treatment plan ? IV fluid resuscitation Treatment review ? Follow-up with morning labs Endo #Mild hyperglycemia ? Blood sugars 173 Treatment plan ? Follow-up with blood sugars every 6 hourly ? Hypoglycemia protocol in place Renal #Electrolyte disturbance #Hypokalemia Diagnostic test ? Potassium 3.2 Treatment plan ? IV 40 mEq KCl given x 1 ? Additional IV 20 meq KCl given x 1 #Lactic acidosis ? In the setting of dehydration ? No mottling seen on exam. Diagnostic test ? Lactic acid 7 Treatment plan ? IV fluid resuscitation 4 L of IV fluids given x 1 Treatment review ? Lactic acid Q3 hourly ID #Aspiration pneumonitis/pneumonia ?ET tube secretions showed mucous like secretions ?Continue IV 1 g ceftriaxone Iv x1 followed by Starting Unasyn 1.5 g every 6 hourly to cover anaerobic starting in morning (02/03-) ?Follow-up with sputum cultures and MRSA screen ICU Health Maintenance GI prophylaxis:Protonix 40 mg IV DVT prophylaxis: Heparin SC Tubes: Et Tube Vent: AC/VC Sedation: Propofol and Precedex Lines: Peripherals Zhang: Placed Code status: Full code ICU Hospitalization:Patient is admitted to ICU for management of acute encephalopathy s/p intubation due to alcohol intoxication. -- Patient was seen and discussed with Attending Physician,Dr Noemi Coello MD PGY-3
[2025-02-03] MEDS: RINGERS LACTATED 1000 ML 1,000 ML 999 ML IV ×4 (00:38→06:16)
[2025-02-03] MEDS: RINGERS LACTATED 1000 ML 1,000 ML 200 ML IV (00:39)
[2025-02-03] MEDS: Magnesium Sulfate 2 GM Ivpb 2 GM/50 ML BAG IV (00:42)
[2025-02-03] MEDS: POTASSIUM CHL 10 mEq IVPB 10 MEQ/100 ML BAG 100 MEQ IV ×5 (00:42→05:00)
[2025-02-03] MEDS: THIAMINE INJ 100 MG/ML VIAL 2 ML IVP ×3 (00:45→09:17)
[2025-02-03] MEDS: FOLIC ACID INJ 1 MG/0.2 ML IVP ×2 (00:45→09:18)
[2025-02-03] MEDS: HEPARIN SOD INJ 5000 UNIT/ML VIAL SC ×4 (00:51→21:07)
[2025-02-03 01:10] LABS: Magnesium 2.3 mg/dL (1.6-2.6); Phosphorous 4.6 mg/dL (2.4-5.1)
[2025-02-03 01:31] LABS: Lactate (Lactic Acid) 7.7 mMol/L (0.4-2.0)
[2025-02-03] MEDS: CALCIUM GLUC/NS 1000MG IVPB 1,000 MG/50 ML BAG 50 MG IV (02:08)
[2025-02-03] MEDS: cefTRIAXone/D5w 1gm IV premix 1 GM/50 ML BAG IV (02:48)
[2025-02-03] MEDS: DEXMEDETOMIDINE 400 MCG IVPB 400 MCG/100 ML BAG IV (03:00)
[2025-02-03 04:27] LABS: Reflex Lactate? Y
[2025-02-03 04:51] LABS: Base Excess -6 (-3-3); HCO3 21 mEq/L (20-26); Inspired Oxygen, FIO2 60 %; O2 Saturation 100 % (91-98); PCO2 44 mmHg (32.0-48.0); PO2 251 mmHg (83-108); pH, Arterial 7.29 (7.35-7.45)
--- NOTE | 2025-02-03 05:00 | XR_ITS ---
EXAMINATION: AP chest single view TECHNIQUE: AP portable semiupright chest single view Date and time: February 03, 2025, 0504 hours, comparison February 02, 2025 INDICATIONS: Hypoxic respiratory failure beginning yesterday post intubation FINDINGS: Interval bilateral perihilar opacity, consider aspiration pneumonia Endotracheal tube tip 3 cm above corie. Orogastric tube in the stomach Normal heart size No pneumothorax IMPRESSION: Interval bilateral lung opacity, consider aspiration pneumonia
[2025-02-03 05:06] LABS: Allen Test Performed/OK; Puncture Site Right Radial
[2025-02-03 05:10] LABS: Base Excess, Venous -5 (-3-3); O2 Saturation, Venous 99 % (96-97); PCO2, Venous 31 mmHg (36-56); PO2, Venous 134 mmHg (15-58); pH, Venous 7.39 (7.33-7.66)
[2025-02-03 05:13] LABS: Lactate (Lactic Acid) 2.7 mMol/L (0.4-2.0)
[2025-02-03] MEDS: AMPICILLIN/SULBAC INJ 1.5 GM in SODIUM CHLORIDE 0.9% (Popper) 50 ML IV ×4 (05:23→23:22)
[2025-02-03 05:47] LABS: Alanine Aminotransferase 30 U/L (10-49); Albumin, Serum 3.6 gm/dL (3.5-5.0); Albumin/Globulin Ratio 1.9 (1.2-2.2); Alkaline Phosphatase 86 U/L (46-116); Anion Gap 11 (7-16); Aspartate Amino Transferase 34 U/L (0-34); BUN/Creatinine Ratio 13 Ratio (12-20); Bilirubin,Total 0.2 mg/dL (0.3-1.2); Blood Urea Nitrogen < 5 mg/dL (9-23); Calcium 7.6 mg/dL (8.3-10.6); Calcium (Corrected) 7.9 mg/dL (8.5-10.1); Carbon Dioxide 20.4 mMol/L (20.0-31.0); Chloride 112 mMol/L (98-107); Creatinine (Component) 0.4 mg/dL (0.6-1.3); Estimated Creatinine Clearance 174.6 mL/min (>60); Globulin 1.9 gm/dL (2.3-3.5); Glucose 144 mg/dL (74-106); Magnesium 2.2 mg/dL (1.6-2.6); Osmolality,Calculated 285 (275-295); Potassium 5.0 mMol/L (3.4-5.1); Sodium 143 mMol/L (136-145); Thyroid Stimulating Hormone 0.60 uIU/mL (0.55-4.78); Total Protein 5.5 gm/dL (5.7-8.2); eGFR > 60 See Note
[2025-02-03 07:40] LABS: Base Excess -5 (-3-3); HCO3 21 mEq/L (20-26); Inspired Oxygen, FIO2 40 %; O2 Saturation 99 % (91-98); PCO2 41 mmHg (32.0-48.0); PO2 146 mmHg (83-108); pH, Arterial 7.32 (7.35-7.45)
[2025-02-03 07:41] LABS: Allen Test Performed/OK; Puncture Site Left Radial
[2025-02-03 08:14] LABS: Reflex Lactate? Y
--- NOTE | 2025-02-03 11:08 | PD.RESPRO ---
Documentation for date of: 02/03/25 Subjective Subjective Interval history: This patient is a 20-year-old female with no significant past medical history brought to ED by EMS in obtunded state on 02/02/2025. Patient was found obtunded with alcohol bottle and presumed to have drank alcohol earlier in the day and was found unresponsive by paramedics with large amount of emesis. She was immediately rushed to ER. Initially, patient was on high flow nonrebreather with GCS of 3. She was intubated and mechanically ventilated in the ED for airway protection due to GCS of 3 with inability to protect airways. Patient's mother was contacted was a point of contact for patient while using Somali translation services ID number [id number]. She stated that patient was unable to breathe and was found altered at 10 PM. Her last well-known time was afternoon when she was interactive alert and oriented x 3. She also stated that patient had 2 episodes of emesis without any blood. She never had history of drinking alcohol and this was her first time drinking alcohol and mother was aware about it. She was alone in her room while she was drinking alcohol per patient's mom. Patient was not interacting with her mom while en route to the EMS and she did not noted any other complaints. Patient's mother was informed that patient is currently getting supportive care with IV fluids and will be intubated overnight and neurological status will be assessed in the morning. Patient is full code per patient's mom. PMH: Not significant PSH: not significant SH: She drank alcohol for the first time per patients mother, Per mother never smoked tobacco, No Hx of illicit drug use. Works at [employer]. Allergies: NKDA Home medications:None ED course: In the ED, patient's vital showed blood pressure 114/78, heart rate 99, respiratory rate 14, temperature 94.1. They were maintaining saturation by Ambu bag while she was brought into the ED. CBC showed WBC 19.5, hemoglobin stable at 15.2, platelet count 337. ABG showed pH 7.25, pCO2 44, pO2 453. FiO2 100%. Chemistry panel showed sodium 139, potassium 3.2, chloride 106, bicarb 19.3, anion gap 14. Kidney function stable with creatinine 0.6. Blood glucose 173. Liver enzymes unremarkable. T. bili normal. ALP 121. Albumin 4.9. Urinalysis revealed protein 1+ only. Beta-hCG negative. U tox was negative. EtOH 545.6 Tylenol level less than 2. Salicylates level less than 3. Chest x-ray showed no pneumonia or pulm edema. ET tube 3 cm above corie. Sputum ED cultures taken. Head CT showed no acute pathology. In the ED, patient received 1 L bolus of NS x 1, rocuronium 50 mg IV x 1 and etomidate 10 mg IV x 1. Propofol started for sedation. Patient will be admitted to ICU for the management of acute encephalopathy s/p intubation due to alcohol intoxication. Interval History: Patient was admitted overnight. Night team attempted to wean off sedation, however patient became agitated. This morning, after decreasing sedation, the patient was able to self extubate after approximately 0840. The patient was found stable, breathing on her own, without any distress, and able to follow commands. The patient is Somali-speaking, so patient was asked with climatology teacher if she knows what had happened to her. The patient does recall drinking a bottle of tequila at home, and after that the patient does not recall what led her to the hospital. The patient denies having ever drank prior to this and denies any attempts to harm herself by drinking a bottle of tequila at home. The patient's mother came to bedside later that day and was updated on the patient's condition. The patient's mother also noted that the patient had not been drinking alcohol prior to this event. Given that the patient was able to follow all commands, is able to hold a conversation, and does not have any respiratory distress since self extubation, will downgrade to the medical floors. The patient does still have an elevated lactic acid, however it is significantly improved compared to when she was admitted, and it is expected that patient is recovering from alcohol overdose will have slightly elevated lactic acid. Exam Vital Signs Temp Pulse Resp BP Pulse Ox O2 Del Method FiO2 95.9 F L 66 20 106/69 100 Mechanical Ventilation 60 02/03/25 08:00 02/03/25 08:00 02/03/25 00:06 02/03/25 08:00 02/03/25 08:00 02/03/25 02:00 02/03/25 07:54 Narrative Exam Physical Exam: General: Alert, no acute distress. Skin: Warm, dry, intact. Head: Normocephalic, atraumatic. Eye: Normal conjunctiva, PERRL. Throat: Oral mucosa dry. No obvious lesions in oropharynx. Cardiovascular: Tachycardic rate and regular rhythm, no murmur, +S1/S2. Respiratory: Lungs are clear to auscultation, respirations unlabored, no crackles, no wheezing. Gastrointestinal: Soft, nontender, non-distended. No guarding or rebound tenderness. Extremities: No edema, no cyanosis, no clubbing. 2+ radial pulse bilaterally, 2+ pedal pulse bilaterally. Neuro: No focal deficits observed. Conversant, moving all extremities. No overt cerebellar signs/incoordination. Psychiatric: Cooperative, slow affect. Objective Labs 02/02/25 22:20 02/03/25 04:47 Labs: Laboratory Results - last 24 hr 02/02/25 02/02/25 02/02/25 22:20 22:30 22:56 WBC 19.5 H RBC 5.14 Hgb 15.2 Hct 45.0 MCV 88 MCH 29.6 MCHC 33.8 RDW Std Deviation 41.1 Plt Count 377 Neut % (Auto) 46 Lymph % (Auto) 39 Sierra % (Auto) 8 Eos % (Auto) 2 Baso % (Auto) 1 Neut # (Auto) 8.8 H Lymph # (Auto) 7.6 H Sierra # (Auto) 1.5 H Eos # (Auto) 0.3 Baso # (Auto) 0.2 Immature Gran # (Auto) 0.98 H Absolute Nucleated RBC 0.00 Immature Gran % 5 H Nucleated RBC % 0 Puncture Site Right Radial ABG pH 7.25 L ABG pCO2 44 ABG pO2 453 H ABG HCO3 20 ABG O2 Saturation 100 H ABG Base Excess -8 L VBG pH VBG pCO2 VBG pO2 VBG O2 Sat (Charles) VBG Base Excess FiO2 100 Sodium 139 Potassium 3.2 L Chloride 106 Carbon Dioxide 19.3 L Anion Gap 14 BUN 8 L Creatinine 0.6 Estim Creat Clear Calc 116.4 eGFR > 60 BUN/Creatinine Ratio 13 Glucose 173 H Calculated Osmolality 279 Lactic Acid Calcium 8.5 Corrected Calcium 8.5 Phosphorus 4.6 Magnesium 2.3 Total Bilirubin 0.2 L AST 34 ALT 34 Alkaline Phosphatase 121 H Total Protein 7.7 Albumin 4.9 Globulin 2.8 Albumin/Globulin Ratio 1.8 Triglycerides Cholesterol LDL Cholesterol, Calc HDL Cholesterol Cholesterol/HDL Ratio TSH Ur Collection Type Catheter Urine Color Lt-Yellow Urine Clarity Clear Urine pH 6.0 Ur Specific [place] 1.024 Urine Protein 1+ A Urine Glucose (UA) Negative Urine Ketones Negative Urine Blood Negative Urine Nitrite Negative Urine Bilirubin Negative Urine Urobilinogen (Auto) Negative Ur Leukocyte Esterase Negative Urine RBC 1 Urine WBC 1 Ur Squamous Epith Cells 0 Urine Bacteria None Hyaline Casts < 1 Ur Culture Indicated? Not Indicated Urine HCG, Qual Negative Salicylates < 3.0 Urine Opiates Screen Negative Urine Fentanyl Screen Negative Acetaminophen < 2.0 L Ur Barbiturates Screen Negative U Amphetamin/Meth Scrn Negative U Benzodiazepines Scrn Negative U Cocaine Metab Screen Negative U Marijuana (THC) Screen Negative Ethyl Alcohol 545.6 H* 02/03/25 02/03/25 02/03/25 01:21 04:35 04:47 WBC 14.4 H D RBC 4.16 Hgb 12.5 D Hct 36.2 MCV 87 MCH 30.0 MCHC 34.5 RDW Std Deviation 41.2 Plt Count 275 D Neut % (Auto) 81 H Lymph % (Auto) 12 Sierra % (Auto) 5 Eos % (Auto) 0 Baso % (Auto) 0 Neut # (Auto) 11.7 H Lymph # (Auto) 1.7 Sierra # (Auto) 0.7 Eos # (Auto) 0.1 Baso # (Auto) 0.1 Immature Gran # (Auto) 0.24 H Absolute Nucleated RBC 0.00 Immature Gran % 2 H Nucleated RBC % 0 Puncture Site Right Radial ABG pH 7.29 L ABG pCO2 44 ABG pO2 251 H D ABG HCO3 21 ABG O2 Saturation 100 H ABG Base Excess -6 L VBG pH 7.39 VBG pCO2 31 L VBG pO2 134 H VBG O2 Sat (Charles) 99 H VBG Base Excess -5 L FiO2 60 Sodium 143 Potassium 5.0 D Chloride 112 H Carbon Dioxide 20.4 Anion Gap 11 BUN < 5 L Creatinine 0.4 L Estim Creat Clear Calc 174.6 eGFR > 60 BUN/Creatinine Ratio 13 Glucose 144 H Calculated Osmolality 285 Lactic Acid 7.7 H* 2.7 H Calcium 7.6 L Corrected Calcium 7.9 L Phosphorus Magnesium 2.2 Total Bilirubin 0.2 L AST 34 ALT 30 Alkaline Phosphatase 86 D Total Protein 5.5 L Albumin 3.6 D Globulin 1.9 L Albumin/Globulin Ratio 1.9 Triglycerides Cancelled Cholesterol Cancelled LDL Cholesterol, Calc Cancelled HDL Cholesterol Cancelled Cholesterol/HDL Ratio Cancelled TSH 0.60 Ur Collection Type Urine Color Urine Clarity Urine pH Ur Specific [place] Urine Protein Urine Glucose (UA) Urine Ketones Urine Blood Urine Nitrite Urine Bilirubin Urine Urobilinogen (Auto) Ur Leukocyte Esterase Urine RBC Urine WBC Ur Squamous Epith Cells Urine Bacteria Hyaline Casts Ur Culture Indicated? Urine HCG, Qual Salicylates Urine Opiates Screen Urine Fentanyl Screen Acetaminophen Ur Barbiturates Screen U Amphetamin/Meth Scrn U Benzodiazepines Scrn U Cocaine Metab Screen U Marijuana (THC) Screen Ethyl Alcohol 02/03/25 07:34 WBC RBC Hgb Hct MCV MCH MCHC RDW Std Deviation Plt Count Neut % (Auto) Lymph % (Auto) Sierra % (Auto) Eos % (Auto) Baso % (Auto) Neut # (Auto) Lymph # (Auto) Sierra # (Auto) Eos # (Auto) Baso # (Auto) Immature Gran # (Auto) Absolute Nucleated RBC Immature Gran % Nucleated RBC % Puncture Site Left Radial ABG pH 7.32 L ABG pCO2 41 ABG pO2 146 H D ABG HCO3 21 ABG O2 Saturation 99 H ABG Base Excess -5 L VBG pH VBG pCO2 VBG pO2 VBG O2 Sat (Charles) VBG Base Excess FiO2 40 Sodium Potassium Chloride Carbon Dioxide Anion Gap BUN Creatinine Estim Creat Clear Calc eGFR BUN/Creatinine Ratio Glucose Calculated Osmolality Lactic Acid Calcium Corrected Calcium Phosphorus Magnesium Total Bilirubin AST ALT Alkaline Phosphatase Total Protein Albumin Globulin Albumin/Globulin Ratio Triglycerides Cholesterol LDL Cholesterol, Calc HDL Cholesterol Cholesterol/HDL Ratio TSH Ur Collection Type Urine Color Urine Clarity Urine pH Ur Specific [place] Urine Protein Urine Glucose (UA) Urine Ketones Urine Blood Urine Nitrite Urine Bilirubin Urine Urobilinogen (Auto) Ur Leukocyte Esterase Urine RBC Urine WBC Ur Squamous Epith Cells Urine Bacteria Hyaline Casts Ur Culture Indicated? Urine HCG, Qual Salicylates Urine Opiates Screen Urine Fentanyl Screen Acetaminophen Ur Barbiturates Screen U Amphetamin/Meth Scrn U Benzodiazepines Scrn U Cocaine Metab Screen U Marijuana (THC) Screen Ethyl Alcohol ABG Interpretation ABG results: 02/02/25 02/03/25 02/03/25 22:56 04:35 04:47 ABG pH 7.25 L 7.29 L ABG pCO2 44 44 ABG pO2 453 H 251 H D ABG HCO3 20 21 ABG O2 Saturation 100 H 100 H ABG Base Excess -8 L -6 L VBG pH 7.39 VBG pCO2 31 L VBG pO2 134 H VBG Base Excess -5 L 02/03/25 07:34 ABG pH 7.32 L ABG pCO2 41 ABG pO2 146 H D ABG HCO3 21 ABG O2 Saturation 99 H ABG Base Excess -5 L VBG pH VBG pCO2 VBG pO2 VBG Base Excess Quality Measures Quality Measures VTE prophylaxis (Heparin SC ) Assessment & Plan Assessment Current Active Medications: Generic Name Dose Route Start Last Admin Trade Name Freq PRN Reason Stop Dose Admin Folic Acid 1 mg 02/03/25 00:25 02/03/25 09:18 Folic Acid Inj 1 Mg/0.2 Ml IVP 02/06/25 00:24 1 mg QDAY SHANE Administration Heparin Sodium (Porcine) 5,000 unit 02/03/25 00:30 02/03/25 05:24 Heparin Sod Inj 5000 Unit/Ml Vial SC 02/17/25 00:29 5,000 unit Q8HR SHANE Administration Ampicillin Sodium/Sulbactam 50 mls @ 100 mls/hr 02/03/25 06:00 02/03/25 05:23 Sodium 1.5 gm/ Sodium Chloride IV 02/10/25 05:59 100 mls/hr Q6HR SHANE Administration Dexmedetomidine/Sodium Chloride 400 mcg in 100 mls @ 2.465 mls/hr 02/03/25 07:07 Precedex Ivpb IV 03/05/25 02:15 .Q24H PRN Per PROTOCOL Protocol 0.2 MCG/KG/HR Propofol 1,000 mg in 100 mls @ 1.479 mls/hr 02/03/25 07:07 Diprivan Ivpb IV 03/05/25 02:56 .Q24H PRN PER PROTOCOL Protocol 5 MCG/KG/MIN Ondansetron HCl 4 mg 02/03/25 00:18 Ondansetron Inj 2 Mg/Ml Inj 2 Ml IVP 03/05/25 00:17 Q6H PRN NAUSEA OR VOMITING Protocol Pantoprazole Sodium 40 mg 02/03/25 09:00 02/03/25 09:18 Pantoprazole Inj 40 Mg Vial IVP 03/05/25 08:59 40 mg QDAY SHANE Administration Sodium Chloride 5 ml 02/02/25 22:37 Sodium Chloride Rt 10% 15 Ml Nebu INH 03/04/25 22:36 X1 PRN If induction required Thiamine HCl 100 mg 02/03/25 00:25 02/03/25 09:17 Thiamine Inj 100 Mg/Ml Vial 2 Ml IVP 02/06/25 00:24 100 mg QDAY SHANE Administration Plan This patient is a 20-year-old female with no significant past medical history who presented to [facility] ED on 02/02 for altered mental status. Patient was admitted to the ICU due to inability to protect her airways requiring intubation. Patient self extubated on 02/03 and is medically stable for downgrade to medical floors on 02/03. NEURO #Acute encephalopathy, resolved #Alcohol intoxication #Binge drinking Dx: Patient found obtunded with bottle alcohol at home, GCS on evaluation in the ED noted to be 3, thus requiring intubation and mechanical ventilation for airway protection EtOH on admission 545.6 CT head on admission negative for acute pathology Patient was intubated initially on admission to ICU, however self extubated on 02/03 in the a.m. Rx: Thiamine IV and folic acid IV Will hold off on [facility] protocol as patient and mother denies any prior history of drinking CARDIO #Hypotension, resolved DDx: Hypovolemia secondary to emesis resulting in dehydration Dx: Patient noted to have large-volume emesis en route to the hospital and had unspecified amount of time obtunded prior to EMS being called Initially presented normotensive, but did drop to 97/57 in ED Patient was sedated using propofol and Precedex on mechanical ventilation, which may have contributed to hypotension Rx: Patient received 5 L of IVF total, 1 L of NS and 4 L of LR while in ICU Patient fluid responsive as hypotension resolved with IV hydration #Hypothermia Dx: Patient temperature 94.1 on admission Likely secondary to vasodilation of alcohol resulting in heat loss Rx: Continue with Js hugger as needed, will likely resolve with time PULM #s/p self-extubation 02/03 Dx: Patient noted to have GCS of 3 in the ED, so patient was intubated and mechanically ventilated, likely in setting of alcohol intoxication Patient was sedated with propofol and Precedex, however on 02/03 in the a.m., after decreasing sedation, the patient self extubated Rx: Continue to monitor respiratory status #Bilateral lung opacity #Gram positive cocci in sputum DDx: Aspiration pneumonitis, aspiration pneumonia Dx: Patient noted to have a large amount of vomitus in her mouth while the patient was being intubated CXR 02/03 showed interval bilateral lung opacity Sputum culture collected on 02/02 grows gram-positive cocci, pending speciation Rx: Unasyn 1.5 g every 6 hours (02/03?) GI #No active problems NEPHRO #Hypokalemia, resolved Dx: Patient noted to have potassium of 3.2 on admission, likely secondary to vomiting Rx: Patient had potassium repleted, repeat potassium on downgrade from ICU 5.0 #Lactic acidosis, improved Dx: Patient had lactic acid of 7.7 on admission, likely secondary to alcohol metabolism causing shift in the NADH/NAD ratio to produce excessive lactate Rx: Resolve underlying alcohol intoxication, most recent lactic acid on ICU downgrade noted to be 2.7 Hospitalist team can repeat lactic acid if they feel warranted, however lactic acid is expected to be continuously elevated until the patient has cleared the alcohol from her system URO #No active problems HEME #Leukocytosis Dx: WBC 19.5 on admission, likely reactive versus aspiration pneumonitis versus developing aspiration pneumonia Rx: Daily CBC Expect improvement with resolution of alcohol intoxication ENDO #No active problems ID #Gram positive cocci in sputum DDx: Aspiration pneumonitis, aspiration pneumonia Dx: Patient noted to have a large amount of vomitus in her mouth while the patient was being intubated CXR 02/03 showed interval bilateral lung opacity Sputum culture collected on 02/02 grows gram-positive cocci, pending speciation Rx: Unasyn 1.5 g every 6 hours (02/03?) MSK #No active problems SKIN #No active problems Feeding/fluids: Regular diet Analgesia: N/A Sedation: N/A Thromboprophylaxis: Heparin Head up position: N/A Ulcer prophylaxis: N/A Glycemic control: AM blood glucose Spontaneous breathing trial: N/A Bowel care: N/A Indwelling catheters: N/A Deescalation of antibiotics: Unasyn CODE STATUS: Full Reason for ICU care: N/A Patient plan of care was discussed with the attending replanting machine operator, Dr. Wang and senior resident Dr. Lynn (PGY-3). Eliecer Dobbins, PGY-1 Attending Provider Attestation/Addendum pt seen and examined, d/w resident team. In brief this is a 20-year-old female who was at home yesterday and proceeded to imbibe a bottle of tequila. Apparently there are some social issues with a boy involved in the patient's decided to drink in her room alone. She was found unresponsive by family and brought to the ER. She was intubated for airway protection. Head CT was negative. This morning off of sedation she is awake alert and able to follow commands. She has a normal thin body habitus and no acute distress. ET tube is in place. Lungs are clear to auscultation bilaterally heart rate regular and rhythmic no bruits murmurs auscultated no apparent pain on palpation of the abdomen and pulses are palpable with no focal neurodeficits. Unfortunately the patient self extubated this morning. Postextubation she is doing well with no complaints. On arrival she did have a lactic acidosis which has trended back down. She has received several liters of IV fluid and has a good urinary output. Currently she appears stable. Discussed with her the issues with imbibing to such a degree. Will refer to social work. Case discussed with ICU Labs, imaging and records reviewed Approximately 36 critical care minutes required for evaluation, exam, review, intervention, discussion formulation of plan of care for this critically ill patient.
--- NOTE | 2025-02-03 11:23 | PC.NURSE ---
at [facility] 0840 was notified by refinery operator helper crude unit that pt self extubated. immediately assessed pt with RT at bedside. pt was found to be stable with no signs and symptoms of distress noted. MD made aware and assessed pt no issues to be found at the time with no new orders given
--- NOTE | 2025-02-03 11:50 | ESPR_ITS ---
Documentation for date of: 02/03/25 Subjective Subjective Interval history: The patient, a 20-year-old female with no significant past medical history, was admitted to the ICU after presenting to the ED in an obtunded state with alcohol intoxication (EtOH level 545.6). She required intubation for airway protection and mechanical ventilation upon arrival. The patient self-extubated on the morning of 02/03, and after weaning sedation, she was found alert, following commands, and breathing on her own. The patient has been stable, and given her current condition, she is medically stable for downgrade to the medical floor. Exam Vital Signs Temp Pulse Resp BP Pulse Ox O2 Del Method FiO2 95.9 F L 90 20 124/77 98 Mechanical Ventilation 60 02/03/25 08:00 02/03/25 11:02/03/25 00:06 02/03/25 11:02/03/25 11:02/03/25 02:00 02/03/25 07:54 Narrative Exam General: Alert, no acute distress. Skin: Warm, dry, intact. Head: Normocephalic, atraumatic. Eye: Normal conjunctiva, PERRL. Throat: Oral mucosa dry. No obvious lesions in oropharynx. Cardiovascular: Tachycardic rate and regular rhythm, no murmur, +S1/S2. Respiratory: Lungs are clear to auscultation, respirations unlabored, no crackles, no wheezing. Gastrointestinal: Soft, nontender, non-distended. No guarding or rebound tenderness. Extremities: No edema, no cyanosis, no clubbing. 2+ radial pulse bilaterally, 2+ pedal pulse bilaterally. Neuro: No focal deficits observed. Conversant, moving all extremities. No overt cerebellar signs/incoordination. Psychiatric: Cooperative, slow affect. Objective Labs 02/02/25 22:20 02/03/25 04:47 Labs: Laboratory Results - last 24 hr 02/02/25 02/02/25 02/02/25 22:20 22:30 22:56 WBC 19.5 H RBC 5.14 Hgb 15.2 Hct 45.0 MCV 88 MCH 29.6 MCHC 33.8 RDW Std Deviation 41.1 Plt Count 377 Neut % (Auto) 46 Lymph % (Auto) 39 Republic % (Auto) 8 Eos % (Auto) 2 Baso % (Auto) 1 Neut # (Auto) 8.8 H Lymph # (Auto) 7.6 H Republic # (Auto) 1.5 H Eos # (Auto) 0.3 Baso # (Auto) 0.2 Immature Gran # (Auto) 0.98 H Absolute Nucleated RBC 0.00 Immature Gran % 5 H Nucleated RBC % 0 Puncture Site Right Radial ABG pH 7.25 L ABG pCO2 44 ABG pO2 453 H ABG HCO3 20 ABG O2 Saturation 100 H ABG Base Excess -8 L VBG pH VBG pCO2 VBG pO2 VBG O2 Sat (Charles) VBG Base Excess FiO2 100 Sodium 139 Potassium 3.2 L Chloride 106 Carbon Dioxide 19.3 L Anion Gap 14 BUN 8 L Creatinine 0.6 Estim Creat Clear Calc 116.4 eGFR > 60 BUN/Creatinine Ratio 13 Glucose 173 H Calculated Osmolality 279 Lactic Acid Calcium 8.5 Corrected Calcium 8.5 Phosphorus 4.6 Magnesium 2.3 Total Bilirubin 0.2 L AST 34 ALT 34 Alkaline Phosphatase 121 H Total Protein 7.7 Albumin 4.9 Globulin 2.8 Albumin/Globulin Ratio 1.8 Triglycerides Cholesterol LDL Cholesterol, Calc HDL Cholesterol Cholesterol/HDL Ratio TSH Ur Collection Type Catheter Urine Color Lt-Yellow Urine Clarity Clear Urine pH 6.0 Ur Specific [place] 1.024 Urine Protein 1+ A Urine Glucose (UA) Negative Urine Ketones Negative Urine Blood Negative Urine Nitrite Negative Urine Bilirubin Negative Urine Urobilinogen (Auto) Negative Ur Leukocyte Esterase Negative Urine RBC 1 Urine WBC 1 Ur Squamous Epith Cells 0 Urine Bacteria None Hyaline Casts < 1 Ur Culture Indicated? Not Indicated Urine HCG, Qual Negative Salicylates < 3.0 Urine Opiates Screen Negative Urine Fentanyl Screen Negative Acetaminophen < 2.0 L Ur Barbiturates Screen Negative U Amphetamin/Meth Scrn Negative U Benzodiazepines Scrn Negative U Cocaine Metab Screen Negative U Marijuana (THC) Screen Negative Ethyl Alcohol 545.6 H* 02/03/25 02/03/25 02/03/25 01:21 04:35 04:47 WBC 14.4 H D RBC 4.16 Hgb 12.5 D Hct 36.2 MCV 87 MCH 30.0 MCHC 34.5 RDW Std Deviation 41.2 Plt Count 275 D Neut % (Auto) 81 H Lymph % (Auto) 12 Republic % (Auto) 5 Eos % (Auto) 0 Baso % (Auto) 0 Neut # (Auto) 11.7 H Lymph # (Auto) 1.7 Republic # (Auto) 0.7 Eos # (Auto) 0.1 Baso # (Auto) 0.1 Immature Gran # (Auto) 0.24 H Absolute Nucleated RBC 0.00 Immature Gran % 2 H Nucleated RBC % 0 Puncture Site Right Radial ABG pH 7.29 L ABG pCO2 44 ABG pO2 251 H D ABG HCO3 21 ABG O2 Saturation 100 H ABG Base Excess -6 L VBG pH 7.39 VBG pCO2 31 L VBG pO2 134 H VBG O2 Sat (Charles) 99 H VBG Base Excess -5 L FiO2 60 Sodium 143 Potassium 5.0 D Chloride 112 H Carbon Dioxide 20.4 Anion Gap 11 BUN < 5 L Creatinine 0.4 L Estim Creat Clear Calc 174.6 eGFR > 60 BUN/Creatinine Ratio 13 Glucose 144 H Calculated Osmolality 285 Lactic Acid 7.7 H* 2.7 H Calcium 7.6 L Corrected Calcium 7.9 L Phosphorus Magnesium 2.2 Total Bilirubin 0.2 L AST 34 ALT 30 Alkaline Phosphatase 86 D Total Protein 5.5 L Albumin 3.6 D Globulin 1.9 L Albumin/Globulin Ratio 1.9 Triglycerides Cancelled Cholesterol Cancelled LDL Cholesterol, Calc Cancelled HDL Cholesterol Cancelled Cholesterol/HDL Ratio Cancelled TSH 0.60 Ur Collection Type Urine Color Urine Clarity Urine pH Ur Specific [place] Urine Protein Urine Glucose (UA) Urine Ketones Urine Blood Urine Nitrite Urine Bilirubin Urine Urobilinogen (Auto) Ur Leukocyte Esterase Urine RBC Urine WBC Ur Squamous Epith Cells Urine Bacteria Hyaline Casts Ur Culture Indicated? Urine HCG, Qual Salicylates Urine Opiates Screen Urine Fentanyl Screen Acetaminophen Ur Barbiturates Screen U Amphetamin/Meth Scrn U Benzodiazepines Scrn U Cocaine Metab Screen U Marijuana (THC) Screen Ethyl Alcohol 02/03/25 07:34 WBC RBC Hgb Hct MCV MCH MCHC RDW Std Deviation Plt Count Neut % (Auto) Lymph % (Auto) [place] % (Auto) Eos % (Auto) Baso % (Auto) Neut # (Auto) Lymph # (Auto) [place] # (Auto) Eos # (Auto) Baso # (Auto) Immature Gran # (Auto) Absolute Nucleated RBC Immature Gran % Nucleated RBC % Puncture Site Left Radial ABG pH 7.32 L ABG pCO2 41 ABG pO2 146 H D ABG HCO3 21 ABG O2 Saturation 99 H ABG Base Excess -5 L VBG pH VBG pCO2 VBG pO2 VBG O2 Sat (Charles) VBG Base Excess FiO2 40 Sodium Potassium Chloride Carbon Dioxide Anion Gap BUN Creatinine Estim Creat Clear Calc eGFR BUN/Creatinine Ratio Glucose Calculated Osmolality Lactic Acid Calcium Corrected Calcium Phosphorus Magnesium Total Bilirubin AST ALT Alkaline Phosphatase Total Protein Albumin Globulin Albumin/Globulin Ratio Triglycerides Cholesterol LDL Cholesterol, Calc HDL Cholesterol Cholesterol/HDL Ratio TSH Ur Collection Type Urine Color Urine Clarity Urine pH Ur Specific [place] Urine Protein Urine Glucose (UA) Urine Ketones Urine Blood Urine Nitrite Urine Bilirubin Urine Urobilinogen (Auto) Ur Leukocyte Esterase Urine RBC Urine WBC Ur Squamous Epith Cells Urine Bacteria Hyaline Casts Ur Culture Indicated? Urine HCG, Qual Salicylates Urine Opiates Screen Urine Fentanyl Screen Acetaminophen Ur Barbiturates Screen U Amphetamin/Meth Scrn U Benzodiazepines Scrn U Cocaine Metab Screen U Marijuana (THC) Screen Ethyl Alcohol ABG Interpretation ABG results: 02/02/25 02/03/25 02/03/25 22:56 04:35 04:47 ABG pH 7.25 L 7.29 L ABG pCO2 44 44 ABG pO2 453 H 251 H D ABG HCO3 20 21 ABG O2 Saturation 100 H 100 H ABG Base Excess -8 L -6 L VBG pH 7.39 VBG pCO2 31 L VBG pO2 134 H VBG Base Excess -5 L 02/03/25 07:34 ABG pH 7.32 L ABG pCO2 41 ABG pO2 146 H D ABG HCO3 21 ABG O2 Saturation 99 H ABG Base Excess -5 L VBG pH VBG pCO2 VBG pO2 VBG Base Excess Quality Measures Quality Measures VTE prophylaxis (Heparin SC ) Assessment & Plan Assessment Current Active Medications: Generic Name Dose Route Start Last Admin Trade Name Liangq PRN Reason Stop Dose Admin Folic Acid 1 mg 02/03/25 00:25 02/03/25 09:18 Folic Acid Inj 1 Mg/0.2 Ml IVP 02/06/25 00:24 1 mg QDAY SHANE Administration Heparin Sodium (Porcine) 5,000 unit 02/03/25 00:30 02/03/25 05:24 Heparin Sod Inj 5000 Unit/Ml Vial SC 02/17/25 00:29 5,000 unit Q8HR SHANE Administration Ampicillin Sodium/Sulbactam 50 mls @ 100 mls/hr 02/03/25 06:00 02/03/25 05:23 Sodium 1.5 gm/ Sodium Chloride IV 02/10/25 05:59 100 mls/hr Q6HR SHANE Administration Dexmedetomidine/Sodium Chloride 400 mcg in 100 mls @ 2.465 mls/hr 02/03/25 07:07 Precedex Ivpb IV 03/05/25 02:15 .Q24H PRN Per PROTOCOL Protocol 0.2 MCG/KG/HR Propofol 1,000 mg in 100 mls @ 1.479 mls/hr 02/03/25 07:07 Diprivan Ivpb IV 03/05/25 02:56 .Q24H PRN PER PROTOCOL Protocol 5 MCG/KG/MIN Ondansetron HCl 4 mg 02/03/25 00:18 Ondansetron Inj 2 Mg/Ml Inj 2 Ml IVP 03/05/25 00:17 Q6H PRN NAUSEA OR VOMITING Protocol Pantoprazole Sodium 40 mg 02/03/25 09:00 02/03/25 09:18 Pantoprazole Inj 40 Mg Vial IVP 03/05/25 08:59 40 mg QDAY SHANE Administration Sodium Chloride 5 ml 02/02/25 22:37 Sodium Chloride Rt 10% 15 Ml Nebu INH 03/04/25 22:36 X1 PRN If induction required Thiamine HCl 100 mg 02/03/25 00:25 02/03/25 09:17 Thiamine Inj 100 Mg/Ml Vial 2 Ml IVP 02/06/25 00:24 100 mg QDAY SHANE Administration Plan 20-year-old female with acute encephalopathy and alcohol intoxication, intubated on admission for airway protection, self-extubated on 02/03, now alert, following commands, and stable for downgrade to medical floors. #Acute Encephalopathy Secondary to alcohol intoxication?resolved The patient was found obtunded with alcohol intoxication (EtOH level 545.6), required intubation for airway protection, and was self-extubated on 02/03. She is now alert, following commands, and stable. Plan: * Continue monitoring neurological status. * Continue IV thiamine and folic acid daily. #Acute Alcohol Intoxication, Binge Drinking The patient drank a bottle of tequila for the first time, leading to acute alcohol intoxication and altered mental status. Plan: * Continue IV thiamine and folic acid. * Social work consult for alcohol use counseling and support. #Hypotension, Resolved The patient initially had hypotension likely due to dehydration from emesis. Blood pressure normalized after fluid resuscitation. Plan: * No further intervention required, hypotension resolved. #Lactic Acidosis, Improving The patient had lactic acidosis (lactic acid 7) upon admission, likely due to dehydration and alcohol intoxication. Lactic acid has improved with fluid resuscitation. Plan: * Continue monitoring lactate levels. * Maintain hydration. #Electrolyte Disturbance (Hypokalemia) Hypokalemia on admission (potassium 3.2). Currently K 5.0 Plan: * Monitor electrolytes, especially potassium. #Emesis Secondary to Alcohol intoxication The patient experienced a large episode of emesis prior to arrival, with no blood noted. Plan: * Continue IV Zofran 4 mg every 6 hours as needed. * Administer Protonix 40 mg IV daily for GI prophylaxis. #Tachycardia The patient presented with tachycardia, likely secondary to alcohol intoxication. Plan: * Continue monitoring vitals. * No further intervention required at this time. Health Maintenance: GI Prophylaxis: Protonix 40 mg IV daily DVT Prophylaxis: Heparin SC Code Status: Full Code Disposition: Stable for downgrade to medical floors. ----- Plan discussed with attending physician Dr. Julito Norman MD PGY-1 Internal Medicine Attending Provider Attestation/Addendum I have discussed and was present for the essential components of the history, physical examination, diagnosis, and treatment plan with the resident. I agree with the patient's care as documented by the resident and amended herein by me. Keegan Vila DO. Although this document has been carefully reviewed, there may still be some phonetic and other typographical errors. These errors are purely grammatical due to imperfections in the software program and should not be construed in any way to compromise the substance of the patient's medical care during this visit.
[2025-02-03 13:43] LABS: Lactate (Lactic Acid) 2.7 mMol/L (0.4-2.0)
--- NOTE | 2025-02-03 14:34 | PC.SS ---
CONDUCTOR/ENGINEER conducted phone contact with the patient?s maternal uncle Riccardo Falcon to conduct initial assessment and to discuss discharge planning on behalf of the patient.? Patient is admitted to ICU.? Patient resides at home with mother, Amber Falcon .? Patient does not require the use of DME to assist with ambulation.? Patient does not require the use of home oxygen.? Patient is able to complete ADL?s independently.? Patient?s medical surrogate decision maker is mother, Amber Falcon.? Patient is not aligned with PCP services.? Discharge plan is for the patient to return home.? Family to provide transportation.? No discharge needs identified at this time. ?No further intervention required at this time, social media content specialist will be available to address any further concerns.? Next of Kin: Amber Falcon D/C Plan: Home
[2025-02-03] MEDS: RINGERS LACTATED 1000 ML 1,000 ML 75 ML IV (15:03)
[2025-02-03 15:36] LABS: Reflex Lactate? Y
[2025-02-03 17:51] LABS: Lactate (Lactic Acid) 2.9 mMol/L (0.4-2.0)
[2025-02-03 20:50] LABS: Reflex Lactate? Y
[2025-02-03 21:25] LABS: Lactic Acid, 3 HR 0.9 mMol/L (0.4-2.0)
[2025-02-04 00:32] VITALS: BP 111/76; PULSE 94; RESP 16; TEMP 36.8; O2SAT 99
[2025-02-04 03:17] LABS: Lactate (Lactic Acid) 1.0 mMol/L (0.4-2.0)
[2025-02-04 03:34] LABS: Basophils # (Auto) 0.1 Thou/mm3 (0.0-0.2); Basophils % (Auto) 1 % (0-2.5); Eosinophils # (Auto) 0.2 Thou/mm3 (0.0-0.5); Eosinophils % (Auto) 1 % (0-10); Hematocrit 37.6 % (36.0-46.0); Hemoglobin 12.7 g/dL (12.0-16.0); Immature Granulocytes Auto 0.28 Thou/mm3 (0.00-0.00); Lymphocytes # (Auto) 3.3 Thou/mm3 (1.0-4.8); Lymphocytes % (Auto) 19 % (10-50); Mean Corpuscular HGB Conc 33.8 g/dl (31.0-37.0); Mean Corpuscular Hemoglobin 29.1 pg (25.0-35.0); Mean Corpuscular Volume 86 fL (80-100); Monocytes # (Auto) 1.2 Thou/mm3 (0.0-0.8); Monocytes % (Auto) 7 % (0-12); Neutrophils # (Auto) 11.9 Thou/mm3 (1.8-7.7); Neutrophils % (Auto) 70 % (37-80); Nucleated Red Blood Cell # 0.00 Thou/mm3 (0.00-0.00); Nucleated Red Blood Cell % 0 /100 WBC (0); Platelet Count 297 Thou/mm3 (140-440); RDW Standard Deviation 40.8 fL (36.4-46.3); Red Blood Count 4.37 Miln/mm3 (4.00-5.20); White Blood Count 17.0 Thou/mm3 (4.5-11.0)
[2025-02-04 04:00] VITALS: BP 120/74; PULSE 86; RESP 16; TEMP 36.8; O2SAT 96
[2025-02-04 04:01] LABS: Alanine Aminotransferase 23 U/L (10-49); Albumin, Serum 4.0 gm/dL (3.5-5.0); Albumin/Globulin Ratio 1.9 (1.2-2.2); Alkaline Phosphatase 95 U/L (46-116); Anion Gap 9 (7-16); Aspartate Amino Transferase 21 U/L (0-34); BUN/Creatinine Ratio 10 Ratio (12-20); Bilirubin,Total 0.5 mg/dL (0.3-1.2); Blood Urea Nitrogen 5 mg/dL (9-23); Calcium 8.7 mg/dL (8.3-10.6); Calcium (Corrected) 8.7 mg/dL (8.5-10.1); Carbon Dioxide 27.7 mMol/L (20.0-31.0); Chloride 105 mMol/L (98-107); Creatinine (Component) 0.5 mg/dL (0.6-1.3); Estimated Creatinine Clearance 142.0 mL/min (>60); Globulin 2.1 gm/dL (2.3-3.5); Glucose 89 mg/dL (74-106); Magnesium 2.1 mg/dL (1.6-2.6); Osmolality,Calculated 279 (275-295); Phosphorous 3.3 mg/dL (2.4-5.1); Potassium 3.5 mMol/L (3.4-5.1); Sodium 142 mMol/L (136-145); Total Protein 6.1 gm/dL (5.7-8.2); eGFR > 60 See Note
[2025-02-04] MEDS: HEPARIN SOD INJ 5000 UNIT/ML VIAL SC (05:14)
[2025-02-04] MEDS: AMPICILLIN/SULBAC INJ 1.5 GM in SODIUM CHLORIDE 0.9% (Popper) 50 ML IV ×2 (05:14→11:24)
[2025-02-04 06:00] VITALS: BMI 19.1
[2025-02-04 08:00] VITALS: BP 122/70; PULSE 88; RESP 17; TEMP 36.6; O2SAT 99
[2025-02-04] MEDS: THIAMINE INJ 100 MG/ML VIAL 2 ML IVP (08:12)
[2025-02-04] MEDS: FOLIC ACID INJ 1 MG/0.2 ML IVP (09:15)
[2025-02-04 10:46] VITALS: BMI 19.2
--- NOTE | 2025-02-04 10:51 | ESDS_ITS ---
Planned Discharge Date 02/04/25 DS: Providers Provider Date of admission: 02/03/25 00:18 Primary care physician: Physician No Primary/Family Admitting Provider: Raj Franklin MD Attending Provider on Admission: Waqas Vila DO Attending Provider on DC: Waqas Vila DO Discharging Provider: Raissa Norman MD DS: Diagnosis Problem List Completed Was Problem List Reviewed/Reconciled?: Yes Hospital Course Hospital Course Hospital course: 20-year-old female with no significant past medical history who was brought in by EMS after being found obtunded at home with a bottle of tequila. On arrival to the ED, she had a GCS of 3 and required intubation for airway protection. Head CT was negative. Labs showed elevated alcohol level (EtOH 545.6), lactic acidosis (lactate 7), and leukocytosis. She was admitted to the ICU, sedated, and mechanically ventilated. She improved clinically and self-extubated on 02/03, after which she remained stable, alert, oriented, and with no respiratory distress. Lactic acid normalized with fluids. She was transferred to the to primary care team for continued monitoring. Overnight she had mild alcohol withdrawal with a CIWA score of 1 and received 0.5 mg lorazepam PO once. This morning she reports feeling well with no nausea, vomiting, tremors, anxiety, chest pain, cough, or shortness of breath. She is tolerating PO and ambulating. She denies suicidal ideation when asked privately. Leukocytosis today is WBC 17, likely reactive vs mild aspiration pneumonitis. She remained afebrile with no respiratory symptoms. She was treated with Unasyn during hospitalization and is stable for discharge on oral antibiotics. She is medically stable and safe for discharge home with her family. Diagnosis during admission: #Acute Encephalopathy Secondary to alcohol intoxication?resolved #Acute Alcohol Intoxication, Binge Drinking #Hypotension, Resolved #Lactic Acidosis, Improved #Electrolyte Disturbance (Hypokalemia) #Emesis Secondary to Alcohol intoxication #Tachycardia Discharge Instructions: -Medications to Start, Augmentin (amoxicillin?clavulanate) Take 1 tablet twice daily for 3 more days, starting tomorrow morning. -You may resume normal activity as tolerated. -Avoid driving for 24 hours. -Drink plenty of fluids to stay hydrated. -Follow up with your primary care doctor within a week. -Patient Counseling: * You were intubated because of alcohol intoxication and inability to breathe safely. * You improved, are now stable, and safe for discharge. * Please use alcohol safely or avoid it completely. * If you need help with alcohol use or stress, call [phone] or speak with your primary doctor for counseling resources. -Return to ER if Fever, chills, worsening cough, chest pain, or trouble breathing, severe nausea or vomiting, confusion, agitation, tremors, shaking, or hallucinations ----- Plan discussed with attending physician Dr. Julito Norman MD PGY-1 Internal Medicine Time Spent with Patient Time attestation: Total time spent providing and/or coordinating discharge services: Time spent: Greater than 30 minutes Exam Vital Signs Temp Pulse Resp BP Pulse Ox O2 Del Method FiO2 97.9 F 88 17 122/70 99 Room Air 60 02/04/25 08:00 02/04/25 08:00 02/04/25 08:00 02/04/25 08:00 02/04/25 08:00 02/04/25 08:00 02/03/25 07:54 Narrative Exam General: Alert, no acute distress. Skin: Warm, dry, intact. Head: Normocephalic, atraumatic. Eye: Normal conjunctiva, PERRL. Throat: Oral mucosa dry. No obvious lesions in oropharynx. Cardiovascular: Regular rate and regular rhythm, no murmur, +S1/S2. Respiratory: Lungs are clear to auscultation, respirations unlabored, no crackles, no wheezing. Gastrointestinal: Soft, nontender, non-distended. No guarding or rebound tenderness. Extremities: No edema, no cyanosis, no clubbing. 2+ radial pulse bilaterally, 2+ pedal pulse bilaterally. Neuro: No focal deficits observed. Conversant, moving all extremities. No overt cerebellar signs/incoordination. Psychiatric: Cooperative. Discharge Plan Plan Patient Disposition: HOME (Self Care) Patient condition on transfer: Stable Care Plan Goals: Discharge Instructions: -Medications to Start, Augmentin (amoxicillin?clavulanate) Take 1 tablet twice daily for 3 more days, starting tomorrow morning. -You may resume normal activity as tolerated. -Avoid driving for 24 hours. -Drink plenty of fluids to stay hydrated. -Follow up with your primary care doctor within a week. -Patient Counseling: * You were intubated because of alcohol intoxication and inability to breathe safely. * You improved, are now stable, and safe for discharge. * Please use alcohol safely or avoid it completely. * If you need help with alcohol use or stress, call [phone] or speak with your primary doctor for counseling resources. -Return to ER if Fever, chills, worsening cough, chest pain, or trouble breathing, severe nausea or vomiting, confusion, agitation, tremors, shaking, or hallucinations Instrucciones de Gracy: -Medicamentos para Comenzar: Augmentin (amoxicilina?clavulanato) [place] 1 tableta dos veces al d?a por 3 d?as m?s, empezando ma?silas por la ma?silas. -Puede reanudar dean actividades normales seg?n lo tolere. -Evite manejar por 24 horas. -Kailey abundante agua para mantenerse hidratada. -D? seguimiento con jennings m?dico de cabecera dentro de reymundo semana. -Consejer?a al Paciente: ? Usted fue intubada debido a intoxicaci?n por alcohol y porque no pod?a respirar de manera butler. ? Usted mejor?, ahora est? estable y es butler para ser ivonne de gracy. ? Por favor use alcohol de manera responsable o ev?telo completamente. ? Si necesita ayuda con el uso de alcohol o estr?s, llame al 988 o hable con jennings m?dico de cabecera para recursos de consejer?a. -Regrese a la erick de emergencias si presenta fiebre, escalofr?os, empeoramiento de la tos, dolor en el pecho, dificultad para respirar, n?useas o v?mitos severos, confusi?n, agitaci?n, temblores, sacudidas o alucinaciones. Prescriptions/Referrals Prescriptions/Med Rec: New amoxicillin-pot clavulanate 875-125 mg tablet 1 tab PO BID 3 Days Qty: 6 0RF Referrals: No Primary/Family,Physician [Primary Care Provider] Patient/Caregiver Discharge Instructions Education Materials: Social Drinking vs Problem Drinking, Substance Abuse and Traumatic ..., ED Alcohol Intoxication Print Language: Malay Stand Alone Forms: Kanchan Award Info., Patient Portal Info Letter Discharge Order Discharge Orders: Discharge (Routine); Ordered 02/04/25 Ordered By: Isadora Suarez Quality Discharge Quality Measures VTE prophylaxis MD Attestestation MD Attestation I have discussed and was present for the essential components of the discharge history, physical examination, diagnosis, and discharge treatment plan with the resident. I agree with the patient's discharge care as documented by the resident and amended herein by me. Keegan Vila DO. The patient understood all discharge instructions, all questions were answered satisfactorily. The patient was instructed to return to the Emergency Department is symptoms worsened or persisted. Patient's symptoms have resolved at the time of discharge home. Patient was not tremulous, CIWA score 0. Patient felt well. Will continue a short course of Augmentin for aspiration pneumonia, dosing thoroughly explained to the patient and she understood. Patient was stable, afebrile, tolerating p.o. intake and ambulatory at time of discharge home. Although this document has been carefully reviewed, there may still be some phonetic and other typographical errors. These errors are purely grammatical due to imperfections in the software program and should not be construed in any way to compromise the substance of the patient's medical care during this visit.
[2025-02-04 11:50] VITALS: BP 129/80; PULSE 88; RESP 17; TEMP 36.9; O2SAT 96
== END 2025-02-04 14:16 | disposition home or self-care (01) | DRG 775 ==
LOC: SERX 22:35 → SERHOLD 02-03 00:32 → S2SX 02-03 01:50 → S3NX 02-03 15:36
PROVIDERS: Student in an Organized Health Care Education/Training Program; Admitting Provider Internal Medicine; Emergency Provider Emergency Medicine; Visit Provider Student in an Organized Health Care Education/Training Program
DX: F10.129 Alcohol abuse with intoxication, unspecified (principal); J69.0 Pneumonitis due to inhalation of food and vomit; E87.20 Acidosis, unspecified; Y90.8 Blood alcohol level of 240 mg/100 ml or more; G31.2 Degeneration of nervous system due to alcohol; F10.139 Alcohol abuse with withdrawal, unspecified; T68.XXXA Hypothermia, initial encounter; R00.0 Tachycardia, unspecified; I95.9 Hypotension, unspecified; R73.9 Hyperglycemia, unspecified; E87.6 Hypokalemia; E86.0 Dehydration; Z60.3 Acculturation difficulty
CPT/HCPCS: 36415; 36600; 51702; 70450; 71045; 80053; 80061; 80307; 80320; 80329; 81001; 81025; 82803; 83605; 83735; 84100; 84443; 85025; 87081; 87205; 87635; 93005; 94002; 94003; 96361; 96365; 96374; 96375; 99291; 99292; A4314; J0295; J0613; J0696; J1644; J2470; J2704; J3411; J3475; J3480; J3490; J7030; J7050; J7120; A9270; G0480